=== PATIENT | male | born 1945 | race Caucasian/White ===

== ENCOUNTER → 2016-09-04 | Outpatient (CLI) | payer MEDICARE, MEDICAID ==
[~2016-09-04] MED LIST: ATOR40TA78 PO; BIMA2.5D OP; DOXA2TAB9 PO; GABA300C10 PO; KETO120S TP; LISI5TAB7 PO; OXYC1TAB8 PO; RIVA20TA PO; SPIR25TA3 PO; VITAMIN D PO
== END | disposition home or self-care (01) ==
LOC: CVU 12:36
PROVIDERS: ATTEND Surgery
DX: I65.21 Occlusion and stenosis of right carotid artery (principal); I73.9 Peripheral vascular disease, unspecified; I70.209 Unspecified atherosclerosis of native arteries of extremities, unspecified extremity
CPT/HCPCS: 93880; 93922; 93925

== ENCOUNTER 2016-11-28 11:52 | Inpatient (IN) | payer MEDICARE, MEDICAID ==
[~2016-11-28] VITALS: Ht 177.8 cm; Wt 90.3 kg
[~2016-11-28 11:52] MED LIST changes: +BIMA2.5D EACHEYE; -BIMA2.5D OP; +CEPH-376 PO; +CHOL200024 PO; +CILO100T PO; +DORZ10DR7 EACHEYE; +LISI-167 PO; +SULF-187 PO
[2016-11-28] MEDS ORDERED: LACTATED RINGERS 1,000 ML IV SCH (12:16)
[2016-11-28] MEDS ORDERED: FENTANYL PF 250 MCG/5ML ONE (14:07)
[2016-11-28] MEDS ORDERED: MIDAZOLAM 1 MG/ML, 2ML ONE (14:07)
[2016-11-28] MEDS ORDERED: HEPARIN 1,000 UNITS/ML, 10ML ONE (15:24)
[2016-11-28] MEDS ORDERED: PROTAMINE SULFATE 10 MG/ML, 5ML ONE (15:24)
[2016-11-28] MEDS ORDERED: BUPIVACAINE/PF 0.5% ONE (15:24)
[2016-11-28] MEDS ORDERED: BACITRACIN 50,000 UNIT ONE (15:25)
[2016-11-28] MEDS ORDERED: THROMBIN 20,000 UNIT VIAL TP ONE ×2 (15:25→18:28)
[2016-11-28] MEDS ORDERED: ROCURONIUM 10 MG/ML ONE (16:04)
[2016-11-28] MEDS ORDERED: PROPOFOL 10 MG/ML, 20ML ONE (16:04)
[2016-11-28] MEDS ORDERED: NEOSTIGMINE 1 MG/ML, 10ML ONE (16:04)
[2016-11-28] MEDS ORDERED: CEFAZOLIN 1,000 MG ONE (16:04)
[2016-11-28] MEDS ORDERED: DEXAMETHASONE 4 MG/ML, 1ML ONE (16:04)
[2016-11-28] MEDS ORDERED: MORPHINE SULFATE 4 MG/ML, 1ML ONE (18:49)
[2016-11-28] MEDS ORDERED: hydrALAzine 20 MG/ML, 1ML IV PRN ×2 (19:00→23:00)
[2016-11-28] MEDS ORDERED: ALBUTEROL/IPRATROPIUM 2.5MG/0.5MG, 3 ML NPPB PRN (19:00)
[2016-11-28] MEDS ORDERED: ACETAMINOPHEN 325 MG TABLET PO PRN ×2 (19:00→22:30)
[2016-11-28] MEDS ORDERED: PROMETHAZINE 25 MG/ML, 1ML IV PRN (19:00)
[2016-11-28] MEDS ORDERED: OXYcodone 5 MG/5 ML ORAL.SOL UDC PO PRN (19:00)
[2016-11-28] MEDS ORDERED: ONDANSETRON 2MG/ML, 2ML IVPush PRN (19:00)
[2016-11-28] MEDS: LABETALOL 5MG/ML, 20ML IV PRN ×2 (19:08→19:35)
[2016-11-28] MEDS ORDERED: HYDROmorphone 1 MG/ML, 1ML ONE ×2 (19:16→19:51)
[2016-11-28] MEDS ORDERED: hydrALAzine 20 MG/ML, 1ML ONE (19:16)
[2016-11-28] MEDS ORDERED: FENTANYL PF 100 MCG/2ML ONE (19:16)
[2016-11-28] MEDS: FENTANYL PF 100 MCG/2ML IV PRN ×2 (19:17→19:32)
[2016-11-28] MEDS: HYDROmorphone 1 MG/ML, 1ML IV PRN ×4 (19:22→20:05)
[2016-11-28] MEDS ORDERED: ACETAMINOPHEN 650 MG/20.3 ML UDC ONE (19:51)
[2016-11-28] MEDS ORDERED: OXYcodone 5 MG/5 ML ORAL.SOL UDC ONE (19:52)
[2016-11-28] MEDS ORDERED: ASPIRIN 325 MG TABLET PO ONE (20:00)
[2016-11-28] MEDS ORDERED: CEFAZOLIN PMX 2GM/100ML 100 ML IVPB SCH (22:30)
[2016-11-28] MEDS ORDERED: ONDANSETRON 2MG/ML, 2ML IV PRN (22:30)
[2016-11-28] MEDS ORDERED: morphine SULFATE 10 MG/ML, 1ML IV PRN (22:30)
[2016-11-28] MEDS: CEFAZOLIN PMX 2GM/50ML 50 ML IVPB SCH (23:56)
[2016-11-28] MEDS: ATORVASTATIN 40 MG TABLET PO SCH (23:56)
[2016-11-29 00:23] VITALS: BP 111/62
[2016-11-29] MEDS: LACTATED RINGERS 1,000 ML IV SCH ×2 (02:58→15:06)
[2016-11-29 03:11] VITALS: BP 144/76
[2016-11-29] MEDS: ASPIRIN 325 MG TABLET EC PO SCH (05:11)
[2016-11-29 05:28] LABS: BLOOD UREA NITROGEN 31 mg/dL (7-18)
[2016-11-29 07:32] VITALS: BP 108/66
[2016-11-29] MEDS: CEFAZOLIN PMX 2GM/50ML 50 ML IVPB SCH ×2 (09:00→17:47)
[2016-11-29] MEDS: SPIRONOLACTONE 25 MG TABLET PO SCH (09:06)
[2016-11-29] MEDS: GABAPENTIN 300 MG CAPSULE PO SCH ×3 (09:09→22:48)
[2016-11-29] MEDS: LISINOPRIL 10 MG TABLET PO SCH (09:10)
[2016-11-29] MEDS: CLOPIDOGREL 75 MG TABLET PO SCH (09:11)
[2016-11-29] MEDS: CILOSTAZOL 100 MG TABLET PO SCH ×2 (09:12→22:49)
[2016-11-29] MEDS: ENOXAPARIN 40 MG/0.4 ML SQ SCH (09:15)
[2016-11-29] MEDS: LUMIGAN HOMEOPHTH SCH ×2 (09:18→21:00)
[2016-11-29] MEDS: SODIUM CHLORIDE FLUSH 10ML SYR IVF SCH ×2 (09:19→22:49)
[2016-11-29 12:51] VITALS: BP 94/56
[2016-11-29 18:40] VITALS: BP 97/55
[2016-11-29] MEDS: ATORVASTATIN 40 MG TABLET PO SCH (22:49)
[2016-11-30] MEDS: CEFAZOLIN PMX 2GM/50ML 50 ML IVPB SCH ×3 (00:32→17:41)
[2016-11-30 02:27] VITALS: BP 96/52
[2016-11-30] MEDS: LACTATED RINGERS 1,000 ML IV SCH ×2 (03:36→13:18)
[2016-11-30] MEDS: ASPIRIN 325 MG TABLET EC PO SCH (06:58)
[2016-11-30 08:16] VITALS: BP 142/56
[2016-11-30] MEDS: GABAPENTIN 300 MG CAPSULE PO SCH ×3 (08:54→20:55)
[2016-11-30] MEDS: CILOSTAZOL 100 MG TABLET PO SCH (08:54)
[2016-11-30] MEDS: ENOXAPARIN 40 MG/0.4 ML SQ SCH (08:54)
[2016-11-30] MEDS: LISINOPRIL 10 MG TABLET PO SCH (08:54)
[2016-11-30] MEDS: SPIRONOLACTONE 25 MG TABLET PO SCH (08:54)
[2016-11-30] MEDS: CLOPIDOGREL 75 MG TABLET PO SCH (08:55)
[2016-11-30] MEDS: LUMIGAN HOMEOPHTH SCH ×2 (08:55→20:55)
[2016-11-30] MEDS: SODIUM CHLORIDE FLUSH 10ML SYR IVF SCH ×2 (08:55→20:56)
[2016-11-30 14:12] VITALS: BP 84/40
[2016-11-30 18:48] VITALS: BP 111/56
[2016-11-30] MEDS: ATORVASTATIN 40 MG TABLET PO SCH (20:55)
[2016-12-01] MEDS: LACTATED RINGERS 1,000 ML IV SCH ×2 (01:50→12:36)
[2016-12-01] MEDS: CEFAZOLIN PMX 2GM/50ML 50 ML IVPB SCH ×2 (01:51→09:12)
[2016-12-01 03:19] VITALS: BP 101/58
[2016-12-01] MEDS: ASPIRIN 325 MG TABLET EC PO SCH (06:20)
[2016-12-01 06:56] VITALS: BP 142/73
[2016-12-01] MEDS: LUMIGAN HOMEOPHTH SCH (07:56)
[2016-12-01] MEDS: SPIRONOLACTONE 25 MG TABLET PO SCH (08:00)
[2016-12-01] MEDS: ENOXAPARIN 40 MG/0.4 ML SQ SCH (08:00)
[2016-12-01] MEDS: GABAPENTIN 300 MG CAPSULE PO SCH (08:00)
[2016-12-01] MEDS: LISINOPRIL 10 MG TABLET PO SCH (08:00)
[2016-12-01] MEDS: CLOPIDOGREL 75 MG TABLET PO SCH (08:00)
[2016-12-01] MEDS: SODIUM CHLORIDE FLUSH 10ML SYR IVF SCH (08:00)
[2016-12-01 13:28] VITALS: BP 105/62
== END 2016-12-01 16:17 | disposition home or self-care (01) | DRG 253 ==
LOC: ORIP 11:52 → 4NOR 20:45
PROVIDERS: ADMIT Surgery; ATTEND Surgery
PROC: 041K0JL Bypass Right Femoral Artery to Popliteal Artery with Synthetic Substitute, Open Approach (ICD-10-PCS; principal; 2016-11-28 15:00)
DX: I70.235 Atherosclerosis of native arteries of right leg with ulceration of other part of foot (principal); E44.1 Mild protein-calorie malnutrition; I10 Essential (primary) hypertension; L97.519 Non-pressure chronic ulcer of other part of right foot with unspecified severity; R10.9 Unspecified abdominal pain; J44.9 Chronic obstructive pulmonary disease, unspecified; E78.5 Hyperlipidemia, unspecified; G89.29 Other chronic pain; M54.5 Low back pain; M19.90 Unspecified osteoarthritis, unspecified site; N40.0 Benign prostatic hyperplasia without lower urinary tract symptoms; I25.10 Atherosclerotic heart disease of native coronary artery without angina pectoris; Z87.891 Personal history of nicotine dependence; Z95.820 Peripheral vascular angioplasty status with implants and grafts; Z86.711 Personal history of pulmonary embolism; Z79.01 Long term (current) use of anticoagulants
CPT/HCPCS: 36415; 80048; 82040; 85025; 86850; 86900; 93005; C1729; J0690; J1100; J1170; J1644; J1650; J2250; J2704; J2710; J2720; J3010; J3490; C1768; J7120

== ENCOUNTER 2017-07-31 14:01 | Emergency (ER) | payer MEDICARE, MEDICAID ==
[~2017-07-31] VITALS: Ht 177.8 cm; Wt 86.5 kg
[~2017-07-31 14:01] MED LIST changes: +SULF-16 PO; -SULF-187 PO
[2017-07-31 15:14] LABS: BASOPHILS # (AUTO) 0.03 x10^3/uL (0-0.1); BASOPHILS % (AUTO) 0 % (0-1); EOSINOPHILS # (AUTO) 0.11 x10^3/uL (0-0.4); EOSINOPHILS % (AUTO) 1 % (1-7); LYMPHOCYTES # (AUTO) 1.47 x10^3/uL (1-3.4); LYMPHOCYTES % (AUTO) 17 % (22-44); MD NO; MEAN CORPUSCULAR HEMOGLOBIN 31.4 pg (27.5-34.5); MEAN CORPUSCULAR HGB CONC 33.4 g/dL (33.2-36.2); MEAN CORPUSCULAR VOLUME 94.2 fL (81-97); MEAN PLATELET VOLUME 8.1 fL (7.4-10.4); MONOCYTES # (AUTO) 0.76 x10^3/uL (0.2-0.8); MONOCYTES % (AUTO) 9 % (2-9); NEUTROPHILS % (AUTO) 72 % (42-75); PLATELET COUNT 221 x10^3/uL (130-400); RED BLOOD COUNT 4.46 x10^6/uL (4.38-5.82)
[2017-07-31 15:26] LABS: ALBUMIN 3.8 g/dL (3.4-5.0); ANION GAP 6 mmol/L (5-15); CALCIUM 9.2 mg/dL (8.5-10.1); CHLORIDE 103 mmol/L (98-107); CREATININE 0.79 mg/dL (0.7-1.3)
[2017-07-31] MEDS ORDERED: FLU180SY9 INJ (17:31)
[2017-07-31] MEDS ORDERED: TRAM50TA2 PO (17:31)
[2017-07-31] MEDS ORDERED: KETOROLAC 30 MG/1 ML ONE (19:52)
[2017-07-31 19:56] VITALS: BP 111/67
[2017-07-31] MEDS ORDERED: KETOROLAC 30 MG/1 ML IM ONE (20:00)
== END 2017-07-31 21:03 | disposition home or self-care (01) ==
LOC: ED 17:08
DX: M79.604 Pain in right leg (principal); R60.0 Localized edema; R20.0 Anesthesia of skin; R20.2 Paresthesia of skin; J44.9 Chronic obstructive pulmonary disease, unspecified; I10 Essential (primary) hypertension; E78.00 Pure hypercholesterolemia, unspecified
CPT/HCPCS: 36415; 80048; 82040; 85025; 93971; 96372; 99285; J1885

== ENCOUNTER 2017-08-11 15:51 | Inpatient (IN) | payer MEDICARE, MEDICAID ==
[~2017-08-11] VITALS: Ht 177.8 cm; Wt 83.4 kg
[~2017-08-11 15:51] MED LIST changes: +FLU180SY9 INJ; +TRAM50TA2 PO
[2017-08-11] MEDS ORDERED: BIMA2.5D EACHEYE (18:29)
[2017-08-11] MEDS ORDERED: SODIUM CHLORIDE FLUSH 10ML SYR IVF ONE (18:30)
[2017-08-11] MEDS ORDERED: morphine SULFATE 10 MG/ML, 1ML IVPush ONE (19:00)
[2017-08-11 19:31] LABS: BASOPHILS # (AUTO) 0.04 x10^3/uL (0-0.1); BASOPHILS % (AUTO) 0 % (0-1); EOSINOPHILS # (AUTO) 0.06 x10^3/uL (0-0.4); EOSINOPHILS % (AUTO) 1 % (1-7); LYMPHOCYTES # (AUTO) 1.99 x10^3/uL (1-3.4); LYMPHOCYTES % (AUTO) 19 % (22-44); MD NO; MEAN CORPUSCULAR HEMOGLOBIN 31.4 pg (27.5-34.5); MEAN CORPUSCULAR HGB CONC 33.4 g/dL (33.2-36.2); MEAN CORPUSCULAR VOLUME 93.9 fL (81-97); MEAN PLATELET VOLUME 8.7 fL (7.4-10.4); MONOCYTES # (AUTO) 0.97 x10^3/uL (0.2-0.8); MONOCYTES % (AUTO) 9 % (2-9); NEUTROPHILS # (AUTO) 7.26 x10^3/uL (1.8-6.8); NEUTROPHILS % (AUTO) 70 % (42-75); PLATELET COUNT 235 x10^3/uL (130-400); RED BLOOD COUNT 4.93 x10^6/uL (4.38-5.82); RED CELL DISTRIBUTION WIDTH 14.5 % (9.4-14.8)
[2017-08-11 19:36] LABS: INTERNATIONAL NORMALIZED RATIO 1.15 (0.93-1.1); PROTHROMBIN TIME 11.9 Seconds (9.6-11.5)
[2017-08-11 19:38] LABS: ANION GAP 10 mmol/L (5-15); CALCIUM 8.8 mg/dL (8.5-10.1); CHLORIDE 102 mmol/L (98-107); CREATININE 0.86 mg/dL (0.7-1.3)
[2017-08-11 19:39] LABS: ALANINE AMINOTRANSFERASE 22 U/L (12-78); ALBUMIN 4.2 g/dL (3.4-5.0)
[2017-08-11 19:41] LABS: ALKALINE PHOSPHATASE 79 U/L (45-117); BILIRUBIN,TOTAL 1.1 mg/dL (0.2-1.0); TOTAL PROTEIN 8.2 g/dL (6.4-8.2)
[2017-08-11] MEDS ORDERED: POLYETHYLENE GLYCOL 17 GM PACKET PO PRN (20:00)
[2017-08-11] MEDS ORDERED: ONDANSETRON 2MG/ML, 2ML IVPush PRN (20:00)
[2017-08-11] MEDS ORDERED: BISACODYL 10 MG SUPP PR PRN (20:00)
[2017-08-11] MEDS ORDERED: OXYcodone IR 5MG TABLET ONE (20:00)
[2017-08-11 20:30] VITALS: BP 117/67
[2017-08-11] MEDS: CILOSTAZOL 100 MG TABLET PO SCH (21:00)
[2017-08-11] MEDS: GABAPENTIN 300 MG CAPSULE PO SCH (21:36)
[2017-08-11] MEDS: SODIUM CHLORIDE FLUSH 10ML SYR IVF SCH (21:36)
[2017-08-11] MEDS: ATORVASTATIN 40 MG TABLET PO SCH (21:36)
[2017-08-12 01:15] VITALS: BP 127/74
[2017-08-12] MEDS: OXYcodone IR 5MG TABLET PO PRN (05:17)
[2017-08-12] MEDS: ACETAMINOPHEN 325 MG TABLET PO PRN (05:17)
[2017-08-12 05:32] LABS: BASOPHILS # (AUTO) 0.04 x10^3/uL (0-0.1); BASOPHILS % (AUTO) 1 % (0-1); EOSINOPHILS # (AUTO) 0.09 x10^3/uL (0-0.4); EOSINOPHILS % (AUTO) 1 % (1-7); LYMPHOCYTES # (AUTO) 1.63 x10^3/uL (1-3.4); LYMPHOCYTES % (AUTO) 21 % (22-44); MD NO; MEAN CORPUSCULAR HEMOGLOBIN 31.3 pg (27.5-34.5); MEAN CORPUSCULAR HGB CONC 33.4 g/dL (33.2-36.2); MEAN CORPUSCULAR VOLUME 93.6 fL (81-97); MONOCYTES % (AUTO) 10 % (2-9); NEUTROPHILS # (AUTO) 5.26 x10^3/uL (1.8-6.8); NEUTROPHILS % (AUTO) 67 % (42-75); PLATELET COUNT 201 x10^3/uL (130-400); RED BLOOD COUNT 4.56 x10^6/uL (4.38-5.82); RED CELL DISTRIBUTION WIDTH 14.3 % (9.4-14.8)
[2017-08-12 05:40] LABS: ALBUMIN 3.6 g/dL (3.4-5.0); ANION GAP 8 mmol/L (5-15); CALCIUM 8.1 mg/dL (8.5-10.1); CHLORIDE 103 mmol/L (98-107)
[2017-08-12 05:44] LABS: BILIRUBIN,TOTAL 1.1 mg/dL (0.2-1.0); CREATININE 0.95 mg/dL (0.7-1.3)
[2017-08-12 05:45] LABS: ALANINE AMINOTRANSFERASE 19 U/L (12-78); ALKALINE PHOSPHATASE 72 U/L (45-117); TOTAL PROTEIN 7.2 g/dL (6.4-8.2)
[2017-08-12 06:44] VITALS: BP 110/64
[2017-08-12] MEDS: CHOLECALCIFEROL 400 UNITS TABLET PO SCH (09:00)
[2017-08-12] MEDS: SODIUM CHLORIDE FLUSH 10ML SYR IVF SCH ×2 (09:00→21:53)
[2017-08-12] MEDS: (Bimatoprost (Lumigan) 1 DROP) EACHEYE SCH (09:00)
[2017-08-12] MEDS: GABAPENTIN 300 MG CAPSULE PO SCH ×3 (10:30→21:53)
[2017-08-12] MEDS: CILOSTAZOL 100 MG TABLET PO SCH ×2 (10:30→21:53)
[2017-08-12] MEDS: SPIRONOLACTONE 25 MG TABLET PO SCH (10:30)
[2017-08-12] MEDS: SENNA/DOCUSATE TABLET PO SCH (10:30)
[2017-08-12] MEDS: LISINOPRIL 10 MG TABLET PO SCH (10:30)
[2017-08-12 13:08] VITALS: BP 140/67
[2017-08-12] MEDS ORDERED: FENTANYL PF 100 MCG/2ML ONE ×3 (17:33→19:36)
[2017-08-12] MEDS ORDERED: PROPOFOL 10 MG/ML, 20ML ONE (18:14)
[2017-08-12] MEDS ORDERED: ONDANSETRON 2MG/ML, 2ML ONE (18:14)
[2017-08-12] MEDS ORDERED: CEFAZOLIN 1,000 MG ONE (18:14)
[2017-08-12] MEDS ORDERED: morphine SULFATE 10 MG/ML, 1ML ONE (19:36)
[2017-08-12] MEDS ORDERED: OXYcodone 5 MG/5 ML ORAL.SOL UDC ONE (19:36)
[2017-08-12] MEDS: FENTANYL PF 100 MCG/2ML IV PRN ×2 (19:38→19:54)
[2017-08-12] MEDS: morphine SULFATE 10 MG/ML, 1ML IV PRN ×3 (19:44→20:13)
[2017-08-12] MEDS ORDERED: OXYcodone 5 MG/5 ML ORAL.SOL UDC PO PRN (20:30)
[2017-08-12] MEDS: HYDROmorphone 1 MG/ML, 1ML IV PRN ×3 (20:30→20:45)
[2017-08-12] MEDS ORDERED: HYDROmorphone 1 MG/ML, 1ML ONE (20:30)
[2017-08-12] MEDS ORDERED: ONDANSETRON 2MG/ML, 2ML IVPush PRN (20:30)
[2017-08-12] MEDS ORDERED: MEPERIDINE/PF 25MG/0.5ML IVPush PRN (20:30)
[2017-08-12 21:00] VITALS: BP 132/59
[2017-08-12] MEDS: ATORVASTATIN 40 MG TABLET PO SCH (21:53)
[2017-08-12] MEDS ORDERED: D5%-LR+KCL 20MEQ 1,000 ML IV SCH (22:30)
[2017-08-12] MEDS: D5%-LR+KCL 20MEQ 1,000 ML IV SCH (22:53)
[2017-08-13 00:15] VITALS: BP 106/54
[2017-08-13] MEDS: OXYcodone IR 5MG TABLET PO PRN ×5 (00:20→18:06)
[2017-08-13] MEDS: ACETAMINOPHEN 325 MG TABLET PO PRN ×5 (00:20→18:06)
[2017-08-13] MEDS: CEFAZOLIN PMX 2GM/50ML 50 ML IVPB SCH ×3 (02:20→18:02)
[2017-08-13 03:38] VITALS: BP 91/53
[2017-08-13 05:39] LABS: BASOPHILS # (AUTO) 0.04 x10^3/uL (0-0.1); BASOPHILS % (AUTO) 0 % (0-1); EOSINOPHILS # (AUTO) 0.02 x10^3/uL (0-0.4); EOSINOPHILS % (AUTO) 0 % (1-7); LYMPHOCYTES # (AUTO) 1.41 x10^3/uL (1-3.4); LYMPHOCYTES % (AUTO) 10 % (22-44); MD NO; MEAN CORPUSCULAR HEMOGLOBIN 31.5 pg (27.5-34.5); MEAN CORPUSCULAR HGB CONC 33.3 g/dL (33.2-36.2); MEAN CORPUSCULAR VOLUME 94.6 fL (81-97); MEAN PLATELET VOLUME 8.6 fL (7.4-10.4); MONOCYTES # (AUTO) 0.76 x10^3/uL (0.2-0.8); MONOCYTES % (AUTO) 6 % (2-9); NEUTROPHILS # (AUTO) 11.47 x10^3/uL (1.8-6.8); NEUTROPHILS % (AUTO) 84 % (42-75); PLATELET COUNT 207 x10^3/uL (130-400); RED BLOOD COUNT 4.35 x10^6/uL (4.38-5.82)
[2017-08-13 05:54] LABS: ANION GAP 9 mmol/L (5-15); CALCIUM 8.5 mg/dL (8.5-10.1); CHLORIDE 102 mmol/L (98-107)
[2017-08-13 05:57] LABS: CREATININE 1.54 mg/dL (0.7-1.3)
[2017-08-13 08:24] VITALS: BP 99/51
[2017-08-13] MEDS: D5%-LR+KCL 20MEQ 1,000 ML IV SCH (08:30)
[2017-08-13] MEDS: SODIUM CHLORIDE FLUSH 10ML SYR IVF SCH ×2 (09:00→20:12)
[2017-08-13] MEDS: LISINOPRIL 10 MG TABLET PO SCH (09:00)
[2017-08-13] MEDS: SPIRONOLACTONE 25 MG TABLET PO SCH (09:00)
[2017-08-13] MEDS: (Bimatoprost (Lumigan) 1 DROP) EACHEYE SCH (09:00)
[2017-08-13] MEDS: ENOXAPARIN 40 MG/0.4 ML SQ SCH (09:23)
[2017-08-13] MEDS: GABAPENTIN 300 MG CAPSULE PO SCH ×3 (09:25→20:12)
[2017-08-13] MEDS: CILOSTAZOL 100 MG TABLET PO SCH ×2 (09:25→20:12)
[2017-08-13] MEDS: SENNA/DOCUSATE TABLET PO SCH (09:26)
[2017-08-13] MEDS: CHOLECALCIFEROL 400 UNITS TABLET PO SCH (09:26)
[2017-08-13] MEDS: MORPHINE SULFATE 4 MG/ML, 1ML IVPush PRN ×2 (11:26→23:56)
[2017-08-13] MEDS ORDERED: PHARMACY MAY ADJ FOR RENAL FX MC PRN (12:00)
[2017-08-13 13:09] VITALS: BP 148/56
[2017-08-13] MEDS: SODIUM CHLORIDE 0.9% 1,000 ML IV SCH ×2 (13:09→23:45)
[2017-08-13 19:32] VITALS: BP 106/51
[2017-08-13] MEDS: ATORVASTATIN 40 MG TABLET PO SCH (20:12)
[2017-08-13 23:21] LABS: CULTURE INDICATED? YES; MICROSCOPIC INDICATED
[2017-08-14] MEDS: ACETAMINOPHEN 325 MG TABLET PO PRN ×4 (00:13→19:57)
[2017-08-14] MEDS: OXYcodone IR 5MG TABLET PO PRN ×2 (00:13→05:26)
[2017-08-14] MEDS: MORPHINE SULFATE 4 MG/ML, 1ML IVPush PRN (01:19)
[2017-08-14 01:55] VITALS: BP 106/56
[2017-08-14 05:54] LABS: CHLORIDE 101 mmol/L (98-107)
[2017-08-14 06:02] LABS: ANION GAP 9 mmol/L (5-15); CALCIUM 8.3 mg/dL (8.5-10.1); CREATININE 1.13 mg/dL (0.7-1.3)
[2017-08-14 06:05] LABS: BASOPHILS # (AUTO) 0.02 x10^3/uL (0-0.1); BASOPHILS % (AUTO) 0 % (0-1); EOSINOPHILS # (AUTO) 0.02 x10^3/uL (0-0.4); EOSINOPHILS % (AUTO) 0 % (1-7); LYMPHOCYTES # (AUTO) 1.21 x10^3/uL (1-3.4); LYMPHOCYTES % (AUTO) 11 % (22-44); MD NO; MEAN CORPUSCULAR HEMOGLOBIN 31.4 pg (27.5-34.5); MEAN CORPUSCULAR HGB CONC 33.4 g/dL (33.2-36.2); MEAN CORPUSCULAR VOLUME 93.9 fL (81-97); MEAN PLATELET VOLUME 8.6 fL (7.4-10.4); MONOCYTES # (AUTO) 1.18 x10^3/uL (0.2-0.8); MONOCYTES % (AUTO) 10 % (2-9); NEUTROPHILS # (AUTO) 8.96 x10^3/uL (1.8-6.8); NEUTROPHILS % (AUTO) 79 % (42-75); PLATELET COUNT 193 x10^3/uL (130-400); RED BLOOD COUNT 3.79 x10^6/uL (4.38-5.82)
[2017-08-14 08:21] VITALS: BP 119/51
[2017-08-14] MEDS: SODIUM CHLORIDE FLUSH 10ML SYR IVF SCH ×3 (09:00→19:57)
[2017-08-14] MEDS: (Bimatoprost (Lumigan) 1 DROP) EACHEYE SCH (09:00)
[2017-08-14] MEDS: ENOXAPARIN 40 MG/0.4 ML SQ SCH (10:11)
[2017-08-14] MEDS: SENNA/DOCUSATE TABLET PO SCH (10:11)
[2017-08-14] MEDS: CILOSTAZOL 100 MG TABLET PO SCH ×2 (10:11→19:57)
[2017-08-14] MEDS: GABAPENTIN 300 MG CAPSULE PO SCH ×3 (10:11→19:57)
[2017-08-14] MEDS: CHOLECALCIFEROL 400 UNITS TABLET PO SCH (10:14)
[2017-08-14] MEDS: CEFTRIAXONE PMX 1GM/50ML 50 ML IV SCH (11:25)
[2017-08-14] MEDS: SODIUM CHLORIDE 0.9% 1,000 ML IV SCH ×2 (11:26→19:57)
[2017-08-14] MEDS ORDERED: DEXTROSE 4 GM TAB.CHEW PO PRN (11:30)
[2017-08-14] MEDS ORDERED: GLUCAGON 1 MG IM PRN (11:30)
[2017-08-14] MEDS ORDERED: DEXTROSE 50%, 50ML SYRINGE IVPush PRN (11:30)
[2017-08-14] MEDS: INSULIN LISPRO 100 UNITS/ML, PEN SQ-INSULIN SCH ×3 (11:30→21:09)
[2017-08-14] MEDS ORDERED: OXYcodone IR 5MG TABLET PO PRN (12:00)
[2017-08-14 12:20] LABS: HEMOGLOBIN A1C 5.5 % (4.2-6.3)
[2017-08-14] MEDS: FOLIC ACID 1 MG TABLET PO SCH (13:54)
[2017-08-14] MEDS: MULTIVIT.W/IRON, MINERALS ORAL SOL PO SCH (13:54)
[2017-08-14] MEDS: TAMSULOSIN 0.4 MG CAP.ER.24H PO SCH (13:54)
[2017-08-14] MEDS: THIAMINE 100MG TABLET PO SCH (13:55)
[2017-08-14 14:51] VITALS: BP 118/67
[2017-08-14 18:42] VITALS: BP 123/64
[2017-08-14] MEDS: ATORVASTATIN 40 MG TABLET PO SCH (19:57)
[2017-08-15 00:58] VITALS: BP 101/55
[2017-08-15] MEDS: ACETAMINOPHEN 325 MG TABLET PO PRN (01:58)
[2017-08-15] MEDS: SODIUM CHLORIDE 0.9% 1,000 ML IV SCH ×2 (06:00→16:00)
[2017-08-15 07:20] VITALS: BP 114/57
[2017-08-15 08:27] LABS: MEAN CORPUSCULAR HEMOGLOBIN 31.3 pg (27.5-34.5); MEAN CORPUSCULAR HGB CONC 33.4 g/dL (33.2-36.2); MEAN CORPUSCULAR VOLUME 93.7 fL (81-97); MEAN PLATELET VOLUME 8.4 fL (7.4-10.4); PLATELET COUNT 194 x10^3/uL (130-400); RED BLOOD COUNT 3.75 x10^6/uL (4.38-5.82); RED CELL DISTRIBUTION WIDTH 13.9 % (9.4-14.8)
[2017-08-15 08:31] LABS: ALANINE AMINOTRANSFERASE 32 U/L (12-78); ALBUMIN 3.3 g/dL (3.4-5.0); ANION GAP 9 mmol/L (5-15); CALCIUM 8.6 mg/dL (8.5-10.1); CHLORIDE 101 mmol/L (98-107)
[2017-08-15 08:34] LABS: ALKALINE PHOSPHATASE 59 U/L (45-117); BILIRUBIN,TOTAL 1.3 mg/dL (0.2-1.0); TOTAL PROTEIN 7.4 g/dL (6.4-8.2)
[2017-08-15] MEDS: SODIUM CHLORIDE FLUSH 10ML SYR IVF SCH ×4 (09:00→21:22)
[2017-08-15] MEDS: (Bimatoprost (Lumigan) 1 DROP) EACHEYE SCH (09:00)
[2017-08-15 09:11] LABS: BASOPHILS % (AUTO) 0 % (0-1); EOSINOPHILS % (AUTO) 0 % (1-7); LYMPHOCYTES # (AUTO) 0.79 x10^3/uL (1-3.4); LYMPHOCYTES % (AUTO) 6 % (22-44); MD SCAN; MONOCYTES # (AUTO) 1.59 x10^3/uL (0.2-0.8); MONOCYTES % (AUTO) 12 % (2-9); NEUTROPHILS # (AUTO) 10.68 x10^3/uL (1.8-6.8); NEUTROPHILS % (AUTO) 82 % (42-75)
[2017-08-15] MEDS: INSULIN LISPRO 100 UNITS/ML, PEN SQ-INSULIN SCH ×4 (09:17→21:00)
[2017-08-15] MEDS: MULTIVIT.W/IRON, MINERALS ORAL SOL PO SCH (09:18)
[2017-08-15] MEDS: CHOLECALCIFEROL 400 UNITS TABLET PO SCH (09:24)
[2017-08-15] MEDS: FOLIC ACID 1 MG TABLET PO SCH (09:24)
[2017-08-15] MEDS: CILOSTAZOL 100 MG TABLET PO SCH ×2 (09:24→21:22)
[2017-08-15] MEDS: TAMSULOSIN 0.4 MG CAP.ER.24H PO SCH (09:24)
[2017-08-15] MEDS: THIAMINE 100MG TABLET PO SCH (09:24)
[2017-08-15] MEDS: GABAPENTIN 300 MG CAPSULE PO SCH ×3 (09:24→21:22)
[2017-08-15] MEDS: SENNA/DOCUSATE TABLET PO SCH (09:24)
[2017-08-15] MEDS: ENOXAPARIN 40 MG/0.4 ML SQ SCH (09:24)
[2017-08-15] MEDS: CEFTRIAXONE PMX 1GM/50ML 50 ML IV SCH (10:57)
[2017-08-15 14:38] VITALS: BP 109/65
[2017-08-15 19:44] VITALS: BP 103/66
[2017-08-15] MEDS: ATORVASTATIN 40 MG TABLET PO SCH (21:22)
[2017-08-16] MEDS: SODIUM CHLORIDE 0.9% 1,000 ML IV SCH (02:01)
[2017-08-16 02:37] VITALS: BP 112/64
[2017-08-16] MEDS: INSULIN LISPRO 100 UNITS/ML, PEN SQ-INSULIN SCH ×4 (07:19→21:00)
[2017-08-16 07:54] VITALS: BP 105/62
[2017-08-16] MEDS: SODIUM CHLORIDE FLUSH 10ML SYR IVF SCH ×4 (09:17→21:05)
[2017-08-16] MEDS: (Bimatoprost (Lumigan) 1 DROP) EACHEYE SCH (09:31)
[2017-08-16] MEDS: CHOLECALCIFEROL 400 UNITS TABLET PO SCH (09:32)
[2017-08-16] MEDS: ENOXAPARIN 40 MG/0.4 ML SQ SCH (09:32)
[2017-08-16] MEDS: FOLIC ACID 1 MG TABLET PO SCH (09:32)
[2017-08-16] MEDS: MULTIVIT.W/IRON, MINERALS ORAL SOL PO SCH (09:32)
[2017-08-16] MEDS: THIAMINE 100MG TABLET PO SCH (09:32)
[2017-08-16] MEDS: GABAPENTIN 300 MG CAPSULE PO SCH ×3 (09:32→21:05)
[2017-08-16] MEDS: TAMSULOSIN 0.4 MG CAP.ER.24H PO SCH (09:33)
[2017-08-16] MEDS: CILOSTAZOL 100 MG TABLET PO SCH ×2 (09:33→21:05)
[2017-08-16] MEDS: SENNA/DOCUSATE TABLET PO SCH (09:33)
[2017-08-16] MEDS: CEFTRIAXONE PMX 1GM/50ML 50 ML IV SCH (11:28)
[2017-08-16 13:40] VITALS: BP 124/69
[2017-08-16 15:05] LABS: BASOPHILS % (AUTO) 0 % (0-1); EOSINOPHILS # (AUTO) 0.01 x10^3/uL (0-0.4); EOSINOPHILS % (AUTO) 0 % (1-7); LYMPHOCYTES % (AUTO) 8 % (22-44); MD NO; MEAN CORPUSCULAR HEMOGLOBIN 30.9 pg (27.5-34.5); MEAN CORPUSCULAR HGB CONC 33.3 g/dL (33.2-36.2); MEAN CORPUSCULAR VOLUME 92.9 fL (81-97); MEAN PLATELET VOLUME 8.2 fL (7.4-10.4); MONOCYTES # (AUTO) 0.88 x10^3/uL (0.2-0.8); MONOCYTES % (AUTO) 9 % (2-9); NEUTROPHILS # (AUTO) 8.52 x10^3/uL (1.8-6.8); NEUTROPHILS % (AUTO) 83 % (42-75); PLATELET COUNT 218 x10^3/uL (130-400); RED BLOOD COUNT 3.48 x10^6/uL (4.38-5.82); RED CELL DISTRIBUTION WIDTH 13.9 % (9.4-14.8)
[2017-08-16 15:12] LABS: ALBUMIN 2.7 g/dL (3.4-5.0); ANION GAP 7 mmol/L (5-15); CHLORIDE 104 mmol/L (98-107); CREATININE 0.72 mg/dL (0.7-1.3)
[2017-08-16 15:25] LABS: MICROSCOPIC AUTO
[2017-08-16 15:30] LABS: CULTURE INDICATED? NO
[2017-08-16] MEDS: RIVAROXABAN 20 MG TABLET PO SCH (18:20)
[2017-08-16 20:18] VITALS: BP 130/74
[2017-08-16] MEDS: ATORVASTATIN 40 MG TABLET PO SCH (21:05)
[2017-08-17] MEDS: ACETAMINOPHEN 325 MG TABLET PO PRN ×3 (00:07→23:29)
[2017-08-17 00:26] VITALS: BP 106/65
[2017-08-17] MEDS: INSULIN LISPRO 100 UNITS/ML, PEN SQ-INSULIN SCH ×4 (06:11→20:02)
[2017-08-17 07:29] VITALS: BP 139/78
[2017-08-17 09:03] LABS: ALBUMIN 2.8 g/dL (3.4-5.0); ANION GAP 8 mmol/L (5-15); CALCIUM 8.4 mg/dL (8.5-10.1); CHLORIDE 104 mmol/L (98-107); CREATININE 0.67 mg/dL (0.7-1.3)
[2017-08-17] MEDS: (Bimatoprost (Lumigan) 1 DROP) EACHEYE SCH (09:21)
[2017-08-17] MEDS: SODIUM CHLORIDE FLUSH 10ML SYR IVF SCH ×4 (09:24→23:30)
[2017-08-17] MEDS: MULTIVIT.W/IRON, MINERALS ORAL SOL PO SCH (09:25)
[2017-08-17] MEDS: SENNA/DOCUSATE TABLET PO SCH (09:25)
[2017-08-17] MEDS: THIAMINE 100MG TABLET PO SCH (09:25)
[2017-08-17] MEDS: TAMSULOSIN 0.4 MG CAP.ER.24H PO SCH (09:25)
[2017-08-17] MEDS: GABAPENTIN 300 MG CAPSULE PO SCH ×3 (09:25→23:29)
[2017-08-17] MEDS: CHOLECALCIFEROL 400 UNITS TABLET PO SCH (09:25)
[2017-08-17] MEDS: CILOSTAZOL 100 MG TABLET PO SCH ×2 (09:25→23:29)
[2017-08-17] MEDS: FOLIC ACID 1 MG TABLET PO SCH (09:26)
[2017-08-17 09:59] LABS: BASOPHILS # (AUTO) 0.02 x10^3/uL (0-0.1); BASOPHILS % (AUTO) 0 % (0-1); EOSINOPHILS # (AUTO) 0.04 x10^3/uL (0-0.4); EOSINOPHILS % (AUTO) 0 % (1-7); LYMPHOCYTES # (AUTO) 0.76 x10^3/uL (1-3.4); LYMPHOCYTES % (AUTO) 9 % (22-44); MD NO; MEAN CORPUSCULAR HEMOGLOBIN 31.2 pg (27.5-34.5); MEAN CORPUSCULAR HGB CONC 33.2 g/dL (33.2-36.2); MEAN CORPUSCULAR VOLUME 94.1 fL (81-97); MEAN PLATELET VOLUME 8.1 fL (7.4-10.4); MONOCYTES # (AUTO) 0.81 x10^3/uL (0.2-0.8); MONOCYTES % (AUTO) 10 % (2-9); NEUTROPHILS # (AUTO) 6.74 x10^3/uL (1.8-6.8); NEUTROPHILS % (AUTO) 81 % (42-75); PLATELET COUNT 237 x10^3/uL (130-400); RED BLOOD COUNT 3.57 x10^6/uL (4.38-5.82); RED CELL DISTRIBUTION WIDTH 14.1 % (9.4-14.8)
[2017-08-17 13:41] VITALS: BP 117/69
[2017-08-17] MEDS: RIVAROXABAN 20 MG TABLET PO SCH (18:02)
[2017-08-17] MEDS: MORPHINE SULFATE 4 MG/ML, 1ML IVPush PRN (18:11)
[2017-08-17 19:56] VITALS: BP 129/67
[2017-08-17] MEDS: ATORVASTATIN 40 MG TABLET PO SCH (23:29)
[2017-08-18 02:41] VITALS: BP 104/58
[2017-08-18] MEDS: INSULIN LISPRO 100 UNITS/ML, PEN SQ-INSULIN SCH ×5 (06:07→20:14)
[2017-08-18] MEDS: ACETAMINOPHEN 325 MG TABLET PO PRN ×2 (07:38→20:05)
[2017-08-18] MEDS: MORPHINE SULFATE 4 MG/ML, 1ML IVPush PRN (07:38)
[2017-08-18 08:27] VITALS: BP 101/58
[2017-08-18 08:36] LABS: BASOPHILS # (AUTO) 0.03 x10^3/uL (0-0.1); BASOPHILS % (AUTO) 1 % (0-1); EOSINOPHILS # (AUTO) 0.09 x10^3/uL (0-0.4); EOSINOPHILS % (AUTO) 1 % (1-7); LYMPHOCYTES # (AUTO) 0.84 x10^3/uL (1-3.4); LYMPHOCYTES % (AUTO) 11 % (22-44); MD NO; MEAN CORPUSCULAR HEMOGLOBIN 30.9 pg (27.5-34.5); MEAN CORPUSCULAR HGB CONC 33.1 g/dL (33.2-36.2); MEAN CORPUSCULAR VOLUME 93.3 fL (81-97); MEAN PLATELET VOLUME 7.6 fL (7.4-10.4); MONOCYTES # (AUTO) 0.71 x10^3/uL (0.2-0.8); MONOCYTES % (AUTO) 10 % (2-9); NEUTROPHILS # (AUTO) 5.83 x10^3/uL (1.8-6.8); NEUTROPHILS % (AUTO) 78 % (42-75); PLATELET COUNT 283 x10^3/uL (130-400); RED BLOOD COUNT 3.57 x10^6/uL (4.38-5.82)
[2017-08-18] MEDS: SODIUM CHLORIDE FLUSH 10ML SYR IVF SCH ×4 (08:42→20:07)
[2017-08-18] MEDS: (Bimatoprost (Lumigan) 1 DROP) EACHEYE SCH (08:42)
[2017-08-18 08:47] LABS: ALBUMIN 2.5 g/dL (3.4-5.0); ANION GAP 10 mmol/L (5-15); CALCIUM 8.2 mg/dL (8.5-10.1); CHLORIDE 104 mmol/L (98-107); CREATININE 0.58 mg/dL (0.7-1.3)
[2017-08-18] MEDS: MULTIVIT.W/IRON, MINERALS ORAL SOL PO SCH (08:54)
[2017-08-18] MEDS: CHOLECALCIFEROL 400 UNITS TABLET PO SCH (08:55)
[2017-08-18] MEDS: TAMSULOSIN 0.4 MG CAP.ER.24H PO SCH (08:55)
[2017-08-18] MEDS: SENNA/DOCUSATE TABLET PO SCH (08:55)
[2017-08-18] MEDS: THIAMINE 100MG TABLET PO SCH (08:55)
[2017-08-18] MEDS: FOLIC ACID 1 MG TABLET PO SCH (08:55)
[2017-08-18] MEDS: CILOSTAZOL 100 MG TABLET PO SCH ×2 (08:55→20:05)
[2017-08-18] MEDS: GABAPENTIN 300 MG CAPSULE PO SCH ×3 (08:55→20:05)
[2017-08-18 14:16] VITALS: BP 106/68
[2017-08-18] MEDS: RIVAROXABAN 20 MG TABLET PO SCH (18:11)
[2017-08-18 20:00] VITALS: BP 122/67
[2017-08-18] MEDS: ATORVASTATIN 40 MG TABLET PO SCH (20:05)
[2017-08-19 02:50] VITALS: BP 95/57
[2017-08-19] MEDS: ACETAMINOPHEN 325 MG TABLET PO PRN ×4 (03:32→21:34)
[2017-08-19 05:16] LABS: BASOPHILS # (AUTO) 0.04 x10^3/uL (0-0.1); BASOPHILS % (AUTO) 1 % (0-1); EOSINOPHILS # (AUTO) 0.15 x10^3/uL (0-0.4); EOSINOPHILS % (AUTO) 2 % (1-7); LYMPHOCYTES # (AUTO) 1.13 x10^3/uL (1-3.4); LYMPHOCYTES % (AUTO) 15 % (22-44); MD NO; MEAN CORPUSCULAR HEMOGLOBIN 31.3 pg (27.5-34.5); MEAN CORPUSCULAR HGB CONC 33.8 g/dL (33.2-36.2); MEAN CORPUSCULAR VOLUME 92.9 fL (81-97); MEAN PLATELET VOLUME 7.9 fL (7.4-10.4); MONOCYTES # (AUTO) 0.79 x10^3/uL (0.2-0.8); MONOCYTES % (AUTO) 10 % (2-9); NEUTROPHILS # (AUTO) 5.59 x10^3/uL (1.8-6.8); NEUTROPHILS % (AUTO) 73 % (42-75); PLATELET COUNT 319 x10^3/uL (130-400); RED CELL DISTRIBUTION WIDTH 14.1 % (9.4-14.8)
[2017-08-19 05:25] LABS: ALBUMIN 2.5 g/dL (3.4-5.0); ANION GAP 8 mmol/L (5-15); CALCIUM 8.3 mg/dL (8.5-10.1); CHLORIDE 104 mmol/L (98-107)
[2017-08-19 05:26] LABS: CREATININE 0.71 mg/dL (0.7-1.3)
[2017-08-19 07:18] VITALS: BP 138/67
[2017-08-19] MEDS: SODIUM CHLORIDE FLUSH 10ML SYR IVF SCH ×4 (08:07→21:34)
[2017-08-19] MEDS: (Bimatoprost (Lumigan) 1 DROP) EACHEYE SCH (08:22)
[2017-08-19] MEDS: GABAPENTIN 300 MG CAPSULE PO SCH ×3 (08:22→21:34)
[2017-08-19] MEDS: FOLIC ACID 1 MG TABLET PO SCH (08:22)
[2017-08-19] MEDS: TAMSULOSIN 0.4 MG CAP.ER.24H PO SCH (08:22)
[2017-08-19] MEDS: CILOSTAZOL 100 MG TABLET PO SCH ×2 (08:22→21:34)
[2017-08-19] MEDS: CHOLECALCIFEROL 400 UNITS TABLET PO SCH (08:22)
[2017-08-19] MEDS: THIAMINE 100MG TABLET PO SCH (08:22)
[2017-08-19] MEDS: MULTIVIT.W/IRON, MINERALS ORAL SOL PO SCH (08:23)
[2017-08-19] MEDS: SENNA/DOCUSATE TABLET PO SCH (08:23)
[2017-08-19] MEDS ORDERED: POTASSIUM CHLORIDE 20 MEQ TAB.ER.PRT PO ONE (08:30)
[2017-08-19] MEDS: INSULIN LISPRO 100 UNITS/ML, PEN SQ-INSULIN SCH (11:42)
[2017-08-19 13:10] VITALS: BP 109/67
[2017-08-19] MEDS: RIVAROXABAN 20 MG TABLET PO SCH (17:41)
[2017-08-19 20:03] VITALS: BP 142/67
[2017-08-19] MEDS: ATORVASTATIN 40 MG TABLET PO SCH (21:34)
[2017-08-20] MEDS: ACETAMINOPHEN 325 MG TABLET PO PRN ×3 (02:22→16:59)
[2017-08-20 03:02] VITALS: BP 131/69
[2017-08-20 06:53] VITALS: BP 123/70
[2017-08-20] MEDS: MULTIVIT.W/IRON, MINERALS ORAL SOL PO SCH (08:54)
[2017-08-20] MEDS ORDERED: MULTIVITAMINS/MINERALS TABLET PO SCH (09:00)
[2017-08-20] MEDS: SODIUM CHLORIDE FLUSH 10ML SYR IVF SCH ×2 (09:22→09:33)
[2017-08-20] MEDS: CHOLECALCIFEROL 400 UNITS TABLET PO SCH (09:30)
[2017-08-20] MEDS: THIAMINE 100MG TABLET PO SCH (09:31)
[2017-08-20] MEDS: CILOSTAZOL 100 MG TABLET PO SCH (09:31)
[2017-08-20] MEDS: FOLIC ACID 1 MG TABLET PO SCH (09:31)
[2017-08-20] MEDS: GABAPENTIN 300 MG CAPSULE PO SCH ×2 (09:31→16:59)
[2017-08-20] MEDS: TAMSULOSIN 0.4 MG CAP.ER.24H PO SCH (09:31)
[2017-08-20] MEDS: SENNA/DOCUSATE TABLET PO SCH (09:33)
[2017-08-20] MEDS: (Bimatoprost (Lumigan) 1 DROP) EACHEYE SCH (09:34)
[2017-08-20 12:53] VITALS: BP 141/59
[2017-08-20] MEDS ORDERED: ACET325T14 PO (12:54)
[2017-08-20] MEDS ORDERED: TAMS-11 PO (12:54)
[2017-08-20] MEDS ORDERED: THIA100T6 PO (12:54)
[2017-08-20] MEDS ORDERED: FOLI-17 PO (12:54)
[2017-08-20 16:46] VITALS: BP 147/82
[2017-08-20] MEDS: RIVAROXABAN 20 MG TABLET PO SCH (16:59)
== END 2017-08-20 17:05 | DRG 853 ==
LOC: ED 18:15 → EDIP 19:52 → 4NOR 20:45
PROVIDERS: ADMIT Internal Medicine; ATTEND Internal Medicine
PROC: 0Y6H0Z1 Detachment at Right Lower Leg, High, Open Approach (ICD-10-PCS; principal; 2017-08-12 18:00)
DX: A41.9 Sepsis, unspecified organism (principal); G93.41 Metabolic encephalopathy; I63.9 Cerebral infarction, unspecified; N17.0 Acute kidney failure with tubular necrosis; E43 Unspecified severe protein-calorie malnutrition; D68.69 Other thrombophilia; K76.0 Fatty (change of) liver, not elsewhere classified; J44.9 Chronic obstructive pulmonary disease, unspecified; E87.1 Hypo-osmolality and hyponatremia; N39.0 Urinary tract infection, site not specified; I73.9 Peripheral vascular disease, unspecified; D64.9 Anemia, unspecified; Z99.3 Dependence on wheelchair; Z87.891 Personal history of nicotine dependence; Z86.73 Personal history of transient ischemic attack (TIA), and cerebral infarction without residual deficits; Z86.711 Personal history of pulmonary embolism; Z79.01 Long term (current) use of anticoagulants; I71.4 Abdominal aortic aneurysm, without rupture; I65.22 Occlusion and stenosis of left carotid artery; I77.1 Stricture of artery; I25.10 Atherosclerotic heart disease of native coronary artery without angina pectoris; I10 Essential (primary) hypertension; G89.29 Other chronic pain; E78.5 Hyperlipidemia, unspecified; E78.00 Pure hypercholesterolemia, unspecified; E53.8 Deficiency of other specified B group vitamins; Z68.26 Body mass index [BMI] 26.0-26.9, adult
CPT/HCPCS: 36415; 70450; 71045; 76700; 80048; 80053; 81001; 82040; 82140; 82607; 82962; 83036; 83735; 85025; 85610; 85730; 87086; 88307; 88311; 93005; 99285; C1729; J0690; J0696; J1170; J1650; J2405; J2704; J3010; J1815; J2270; J3480; J7030

== ENCOUNTER 2017-10-28 13:49 | Inpatient (IN) | payer MEDICARE, MEDICAID ==
[~2017-10-28] VITALS: Ht 180.3 cm; Wt 72.3 kg
[~2017-10-28 13:49] MED LIST changes: +ACET325T14 PO; +FOLI-17 PO; +TAMS-11 PO; +THIA100T6 PO
[2017-10-28 14:29] LABS: BASOPHILS # (AUTO) 0.02 x10^3/uL (0-0.1); BASOPHILS % (AUTO) 0 % (0-1); EOSINOPHILS % (AUTO) 1 % (1-7); LYMPHOCYTES # (AUTO) 1.73 x10^3/uL (1-3.4); LYMPHOCYTES % (AUTO) 15 % (22-44); MD NO; MEAN CORPUSCULAR HEMOGLOBIN 29.7 pg (27.5-34.5); MEAN CORPUSCULAR HGB CONC 33.3 g/dL (33.2-36.2); MEAN PLATELET VOLUME 8.6 fL (7.4-10.4); MONOCYTES # (AUTO) 0.86 x10^3/uL (0.2-0.8); MONOCYTES % (AUTO) 7 % (2-9); NEUTROPHILS % (AUTO) 77 % (42-75); PLATELET COUNT 282 x10^3/uL (130-400); RED BLOOD COUNT 5.29 x10^6/uL (4.38-5.82); RED CELL DISTRIBUTION WIDTH 14.3 % (9.4-14.8)
[2017-10-28 14:40] LABS: ALBUMIN 3.9 g/dL (3.4-5.0); ANION GAP 9 mmol/L (5-15); CHLORIDE 99 mmol/L (98-107); CREATININE 0.88 mg/dL (0.7-1.3)
[2017-10-28] MEDS ORDERED: CEPH-376 PO (14:43)
[2017-10-28] MEDS ORDERED: MUPI22OI2 HOMETP (14:51)
[2017-10-28] MEDS ORDERED: HYDR2TAB40 PO (14:56)
[2017-10-28] MEDS ORDERED: AMPICILLIN/SULBACTAM 3 GM in SODIUM CHLORIDE 0.9% 100 ML IVPB ONE (15:00)
[2017-10-28] MEDS ORDERED: SODIUM CHLORIDE FLUSH 10ML SYR IVF ONE (15:00)
[2017-10-28] MEDS ORDERED: VANCOMYCIN PER PHARMACY MC PRN ×2 (15:00→18:00)
[2017-10-28 15:26] LABS: INTERNATIONAL NORMALIZED RATIO 1.29 (0.93-1.1); PROTHROMBIN TIME 13.2 Seconds (9.6-11.5)
[2017-10-28] MEDS ORDERED: PHARMACOKINETIC CONSULTATION MC ONE (16:00)
[2017-10-28] MEDS ORDERED: VANCOMYCIN 1,600 MG in SODIUM CHLORIDE 0.9% 250 ML IV ONE (16:00)
[2017-10-28] MEDS: AMPICILLIN/SULBACTAM 3 GM in SODIUM CHLORIDE 0.9% 100 ML IV SCH (18:00)
[2017-10-28] MEDS ORDERED: morphine SULFATE 10 MG/ML, 1ML IVPush PRN (18:00)
[2017-10-28] MEDS ORDERED: ACETAMINOPHEN 325 MG TABLET PO PRN (18:00)
[2017-10-28] MEDS ORDERED: ONDANSETRON ODT 4 MG PO PRN (18:00)
[2017-10-28 19:20] VITALS: BP 114/73
[2017-10-28] MEDS ORDERED: PHARMACOKINETIC MONITORING MC PRN (19:30)
[2017-10-28] MEDS: TEMPLATE NON-FORMULARY MED. (Dorzolamide Hcl/Timolol Maleat (Dorzolamide-Timolol Eye Drops EACHEYE SCH (19:55)
[2017-10-28] MEDS: ATORVASTATIN 40 MG TABLET PO SCH (20:05)
[2017-10-28] MEDS: SODIUM CHLORIDE 0.9% 1,000 ML IV SCH (20:05)
[2017-10-28] MEDS: HYDROcodone/APAP 5/325 TABLET PO PRN ×2 (20:05→21:18)
[2017-10-29] MEDS: AMPICILLIN/SULBACTAM 3 GM in SODIUM CHLORIDE 0.9% 100 ML IV SCH ×4 (00:26→18:09)
[2017-10-29 01:16] VITALS: BP 112/69
[2017-10-29] MEDS: HYDROcodone/APAP 5/325 TABLET PO PRN ×4 (02:24→21:05)
[2017-10-29 04:53] LABS: BASOPHILS # (AUTO) 0.05 x10^3/uL (0-0.1); BASOPHILS % (AUTO) 1 % (0-1); EOSINOPHILS # (AUTO) 0.14 x10^3/uL (0-0.4); EOSINOPHILS % (AUTO) 2 % (1-7); LYMPHOCYTES # (AUTO) 1.58 x10^3/uL (1-3.4); LYMPHOCYTES % (AUTO) 22 % (22-44); MD NO; MEAN CORPUSCULAR HEMOGLOBIN 29.3 pg (27.5-34.5); MEAN CORPUSCULAR HGB CONC 32.7 g/dL (33.2-36.2); MEAN CORPUSCULAR VOLUME 89.4 fL (81-97); MEAN PLATELET VOLUME 8.3 fL (7.4-10.4); MONOCYTES # (AUTO) 0.76 x10^3/uL (0.2-0.8); MONOCYTES % (AUTO) 11 % (2-9); NEUTROPHILS % (AUTO) 65 % (42-75); PLATELET COUNT 203 x10^3/uL (130-400); RED BLOOD COUNT 4.44 x10^6/uL (4.38-5.82); RED CELL DISTRIBUTION WIDTH 14.5 % (9.4-14.8)
[2017-10-29 04:55] LABS: CHLORIDE 103 mmol/L (98-107)
[2017-10-29 05:00] LABS: ALANINE AMINOTRANSFERASE 25 U/L (12-78); ALKALINE PHOSPHATASE 75 U/L (45-117); ANION GAP 9 mmol/L (5-15); BILIRUBIN,TOTAL 0.7 mg/dL (0.2-1.0); CALCIUM 7.9 mg/dL (8.5-10.1); CREATININE 0.78 mg/dL (0.7-1.3)
[2017-10-29 07:17] VITALS: BP 114/69
[2017-10-29] MEDS: LISINOPRIL 10 MG TABLET PO SCH (08:13)
[2017-10-29] MEDS: TEMPLATE NON-FORMULARY MED. (Dorzolamide Hcl/Timolol Maleat (Dorzolamide-Timolol Eye Drops EACHEYE SCH ×2 (08:15→21:00)
[2017-10-29] MEDS: TEMPLATE NON-FORMULARY MED. (Bimatoprost (Lumigan) 1 DROP) EACHEYE SCH (08:16)
[2017-10-29] MEDS: VANCOMYCIN 1,600 MG in SODIUM CHLORIDE 0.9% 250 ML IV SCH (12:57)
[2017-10-29] MEDS: SODIUM CHLORIDE 0.9% 1,000 ML IV SCH (13:03)
[2017-10-29 13:36] VITALS: BP 92/53
[2017-10-29 19:18] VITALS: BP 93/57
[2017-10-29] MEDS: ATORVASTATIN 40 MG TABLET PO SCH (21:05)
[2017-10-30] MEDS: AMPICILLIN/SULBACTAM 3 GM in SODIUM CHLORIDE 0.9% 100 ML IV SCH ×4 (00:21→18:04)
[2017-10-30 01:25] VITALS: BP 105/68
[2017-10-30] MEDS: HYDROcodone/APAP 5/325 TABLET PO PRN ×2 (06:18→10:57)
[2017-10-30 06:46] VITALS: BP 119/72
[2017-10-30] MEDS: VANCOMYCIN 1,600 MG in SODIUM CHLORIDE 0.9% 250 ML IV SCH (07:07)
[2017-10-30] MEDS: SODIUM CHLORIDE 0.9% 1,000 ML IV SCH ×2 (08:10→23:18)
[2017-10-30] MEDS: LISINOPRIL 10 MG TABLET PO SCH (08:10)
[2017-10-30] MEDS: TEMPLATE NON-FORMULARY MED. (Bimatoprost (Lumigan) 1 DROP) EACHEYE SCH (08:11)
[2017-10-30] MEDS: TEMPLATE NON-FORMULARY MED. (Dorzolamide Hcl/Timolol Maleat (Dorzolamide-Timolol Eye Drops EACHEYE SCH ×2 (08:11→21:00)
[2017-10-30 13:03] VITALS: BP 88/55
[2017-10-30 14:25] VITALS: BP 111/61
[2017-10-30 15:30] VITALS: BP 112/59
[2017-10-30] MEDS ORDERED: SODIUM CHLORIDE 0.9% 1,000ML IVBOLUS ONE (17:00)
[2017-10-30] MEDS ORDERED: CHLORDIAZEPOXIDE 25 MG CAPSULE PO PRN (18:00)
[2017-10-30] MEDS: LORazepam 2 MG/ML, 1ML IVPush PRN ×2 (18:33→21:19)
[2017-10-30 18:42] VITALS: BP 113/72
[2017-10-30] MEDS ORDERED: ZIPRASIDONE 20 MG INJ IM ONE (19:30)
[2017-10-30] MEDS: ATORVASTATIN 40 MG TABLET PO SCH (21:00)
[2017-10-31] MEDS: AMPICILLIN/SULBACTAM 3 GM in SODIUM CHLORIDE 0.9% 100 ML IV SCH ×4 (00:02→18:23)
[2017-10-31 00:29] VITALS: BP 124/70
[2017-10-31] MEDS: VANCOMYCIN 1,600 MG in SODIUM CHLORIDE 0.9% 250 ML IV SCH ×2 (01:04→20:31)
[2017-10-31] MEDS: LORazepam 2 MG/ML, 1ML IVPush PRN (01:39)
[2017-10-31] MEDS ORDERED: LORazepam 2 MG/ML, 1ML IV PRN ×3 (03:00→20:00)
[2017-10-31] MEDS: LORazepam 2 MG/ML, 1ML IV PRN ×3 (03:10→15:05)
[2017-10-31 07:46] VITALS: BP 155/75
[2017-10-31] MEDS: TEMPLATE NON-FORMULARY MED. (Dorzolamide Hcl/Timolol Maleat (Dorzolamide-Timolol Eye Drops EACHEYE SCH ×2 (09:35→21:00)
[2017-10-31] MEDS: TEMPLATE NON-FORMULARY MED. (Bimatoprost (Lumigan) 1 DROP) EACHEYE SCH (09:35)
[2017-10-31] MEDS ORDERED: MIDAZOLAM 1 MG/ML, 2ML ONE (10:31)
[2017-10-31] MEDS ORDERED: FENTANYL PF 100 MCG/2ML ONE (10:31)
[2017-10-31] MEDS ORDERED: PROPOFOL 10 MG/ML, 20ML ONE (11:00)
[2017-10-31] MEDS ORDERED: FENTANYL PF 100 MCG/2ML IV PRN (12:30)
[2017-10-31] MEDS ORDERED: ONDANSETRON ODT 8 MG PO PRN (12:30)
[2017-10-31] MEDS ORDERED: OXYcodone 5 MG/5 ML ORAL.SOL UDC PO PRN (12:30)
[2017-10-31] MEDS ORDERED: ALBUTEROL SULFATE 2.5 MG/3 ML NPPB PRN (12:30)
[2017-10-31] MEDS ORDERED: ACETAMINOPHEN 325 MG TABLET PO PRN (12:30)
[2017-10-31] MEDS ORDERED: MORPHINE SULFATE 4 MG/ML, 1ML IVPush PRN ×2 (12:30→14:00)
[2017-10-31 13:40] VITALS: BP 160/75
[2017-10-31] MEDS ORDERED: LORazepam 0.5MG TABLET PO PRN (14:00)
[2017-10-31] MEDS: SODIUM CHLORIDE 0.9% 1,000 ML IV SCH (15:05)
[2017-10-31 20:04] VITALS: BP 146/70
[2017-10-31] MEDS: ATORVASTATIN 40 MG TABLET PO SCH (20:36)
[2017-11-01 00:18] VITALS: BP 153/69
[2017-11-01] MEDS: HYDROcodone/APAP 5/325 TABLET PO PRN ×4 (00:36→15:15)
[2017-11-01] MEDS: AMPICILLIN/SULBACTAM 3 GM in SODIUM CHLORIDE 0.9% 100 ML IV SCH ×2 (00:41→06:21)
[2017-11-01 04:19] VITALS: BP 140/76
[2017-11-01 04:53] LABS: BASOPHILS # (AUTO) 0.06 x10^3/uL (0-0.1); BASOPHILS % (AUTO) 1 % (0-1); EOSINOPHILS # (AUTO) 0.13 x10^3/uL (0-0.4); EOSINOPHILS % (AUTO) 2 % (1-7); LYMPHOCYTES # (AUTO) 1.35 x10^3/uL (1-3.4); LYMPHOCYTES % (AUTO) 15 % (22-44); MD NO; MEAN CORPUSCULAR HEMOGLOBIN 29.4 pg (27.5-34.5); MEAN CORPUSCULAR HGB CONC 33.2 g/dL (33.2-36.2); MEAN CORPUSCULAR VOLUME 88.7 fL (81-97); MEAN PLATELET VOLUME 8.8 fL (7.4-10.4); MONOCYTES # (AUTO) 0.73 x10^3/uL (0.2-0.8); MONOCYTES % (AUTO) 8 % (2-9); NEUTROPHILS # (AUTO) 6.64 x10^3/uL (1.8-6.8); NEUTROPHILS % (AUTO) 75 % (42-75); PLATELET COUNT 192 x10^3/uL (130-400); RED BLOOD COUNT 4.32 x10^6/uL (4.38-5.82); RED CELL DISTRIBUTION WIDTH 14.4 % (9.4-14.8)
[2017-11-01 05:02] LABS: ANION GAP 9 mmol/L (5-15); CALCIUM 8.1 mg/dL (8.5-10.1); CHLORIDE 109 mmol/L (98-107)
[2017-11-01] MEDS: LORazepam 2 MG/ML, 1ML IV PRN ×2 (05:35→19:38)
[2017-11-01] MEDS ORDERED: MAGNESIUM SULFATE PMX 2GM/50ML 50 ML IV ONE (07:00)
[2017-11-01 07:08] VITALS: BP 163/73
[2017-11-01] MEDS: ENOXAPARIN 40 MG/0.4 ML SQ SCH (07:48)
[2017-11-01] MEDS: SODIUM CHLORIDE 0.9% 1,000 ML IV SCH ×2 (07:52→20:05)
[2017-11-01] MEDS: BEER 12 OZ CAN PO SCH ×2 (08:31→17:23)
[2017-11-01] MEDS: TEMPLATE NON-FORMULARY MED. (Dorzolamide Hcl/Timolol Maleat (Dorzolamide-Timolol Eye Drops EACHEYE SCH ×2 (09:00→21:00)
[2017-11-01] MEDS: TEMPLATE NON-FORMULARY MED. (Bimatoprost (Lumigan) 1 DROP) EACHEYE SCH (09:00)
[2017-11-01] MEDS: POTASSIUM CHLORIDE 20 MEQ, MAGNESIUM SULFATE 1 GM, FOLIC ACID 1 MG, THIAMINE 200 MG, MV... IV SCH (09:50)
[2017-11-01 14:40] VITALS: BP 148/72
[2017-11-01] MEDS: VANCOMYCIN 1,400 MG in SODIUM CHLORIDE 0.9% 250 ML IV SCH (15:49)
[2017-11-01 18:37] VITALS: BP 167/71
[2017-11-01] MEDS: ATORVASTATIN 40 MG TABLET PO SCH (19:39)
[2017-11-01] MEDS ORDERED: LORazepam 2 MG/ML, 1ML IVPush ONE (22:00)
[2017-11-02 00:44] VITALS: BP 162/70
[2017-11-02] MEDS: LORazepam 2 MG/ML, 1ML IV PRN ×5 (02:18→20:54)
[2017-11-02 06:42] VITALS: BP 161/83
[2017-11-02] MEDS: HYDROcodone/APAP 5/325 TABLET PO PRN (06:49)
[2017-11-02] MEDS: BEER 12 OZ CAN PO SCH ×3 (08:00→17:00)
[2017-11-02] MEDS: ENOXAPARIN 40 MG/0.4 ML SQ SCH (09:49)
[2017-11-02] MEDS: POTASSIUM CHLORIDE 20 MEQ, MAGNESIUM SULFATE 1 GM, FOLIC ACID 1 MG, THIAMINE 200 MG, MV... IV SCH (09:49)
[2017-11-02] MEDS: TEMPLATE NON-FORMULARY MED. (Dorzolamide Hcl/Timolol Maleat (Dorzolamide-Timolol Eye Drops EACHEYE SCH ×2 (09:49→21:02)
[2017-11-02] MEDS: TEMPLATE NON-FORMULARY MED. (Bimatoprost (Lumigan) 1 DROP) EACHEYE SCH (09:49)
[2017-11-02] MEDS: VANCOMYCIN 1,400 MG in SODIUM CHLORIDE 0.9% 250 ML IV SCH (10:14)
[2017-11-02 12:30] VITALS: BP 165/73
[2017-11-02] MEDS ORDERED: LACTOBACILLUS CHEW TABLET ONE (15:36)
[2017-11-02] MEDS: AMPICILLIN/SULBACTAM 3 GM in SODIUM CHLORIDE 0.9% 100 ML IV SCH ×2 (17:27→23:43)
[2017-11-02] MEDS: SODIUM CHLORIDE 0.9% 1,000 ML IV SCH (17:28)
[2017-11-02 20:41] VITALS: BP 175/78
[2017-11-02] MEDS: ATORVASTATIN 40 MG TABLET PO SCH (20:55)
[2017-11-03 01:09] VITALS: BP 164/74
[2017-11-03] MEDS: LORazepam 2 MG/ML, 1ML IV PRN ×6 (02:16→21:34)
[2017-11-03] MEDS: SODIUM CHLORIDE 0.9% 1,000 ML IV SCH ×2 (04:34→16:48)
[2017-11-03] MEDS: VANCOMYCIN 1,400 MG in SODIUM CHLORIDE 0.9% 250 ML IV SCH ×2 (04:35→22:40)
[2017-11-03] MEDS: AMPICILLIN/SULBACTAM 3 GM in SODIUM CHLORIDE 0.9% 100 ML IV SCH ×3 (06:27→16:47)
[2017-11-03 07:19] VITALS: BP 167/74
[2017-11-03] MEDS: BEER 12 OZ CAN PO SCH ×2 (08:00→16:48)
[2017-11-03] MEDS: ENOXAPARIN 40 MG/0.4 ML SQ SCH (09:10)
[2017-11-03] MEDS: TEMPLATE NON-FORMULARY MED. (Bimatoprost (Lumigan) 1 DROP) EACHEYE SCH (09:10)
[2017-11-03] MEDS: TEMPLATE NON-FORMULARY MED. (Dorzolamide Hcl/Timolol Maleat (Dorzolamide-Timolol Eye Drops EACHEYE SCH ×2 (09:10→21:35)
[2017-11-03] MEDS: ONDANSETRON 2MG/ML, 2ML IVPush PRN ×2 (11:41→11:55)
[2017-11-03 12:48] VITALS: BP 133/72
[2017-11-03] MEDS ORDERED: METHYLNALTREXONE 12 MG/0.6 ML SQ ONE (19:00)
[2017-11-03] MEDS ORDERED: MAGNESIUM CITRATE 300ML ORAL SOL PO ONE (19:00)
[2017-11-03 20:00] VITALS: BP 135/74
[2017-11-03] MEDS: ATORVASTATIN 40 MG TABLET PO SCH (21:34)
[2017-11-04] MEDS: AMPICILLIN/SULBACTAM 3 GM in SODIUM CHLORIDE 0.9% 100 ML IV SCH ×3 (00:27→12:20)
[2017-11-04] MEDS: LORazepam 2 MG/ML, 1ML IV PRN ×2 (00:27→06:14)
[2017-11-04 01:05] VITALS: BP 143/68
[2017-11-04] MEDS: ASPIRIN 81 MG TABLET EC PO SCH (05:26)
[2017-11-04] MEDS: SODIUM CHLORIDE 0.9% 1,000 ML IV SCH ×2 (05:26→21:20)
[2017-11-04 07:04] VITALS: BP 129/71
[2017-11-04] MEDS: BEER 12 OZ CAN PO SCH ×2 (08:00→17:00)
[2017-11-04] MEDS ORDERED: ACETAMINOPHEN 325 MG TABLET PO PRN (08:30)
[2017-11-04] MEDS: TEMPLATE NON-FORMULARY MED. (Bimatoprost (Lumigan) 1 DROP) EACHEYE SCH (09:25)
[2017-11-04] MEDS: TEMPLATE NON-FORMULARY MED. (Dorzolamide Hcl/Timolol Maleat (Dorzolamide-Timolol Eye Drops EACHEYE SCH ×2 (09:25→22:19)
[2017-11-04] MEDS: ENOXAPARIN 40 MG/0.4 ML SQ SCH (09:28)
[2017-11-04 12:14] VITALS: BP 164/76
[2017-11-04] MEDS: CEFAZOLIN PMX 1GM/50ML 50 ML IV SCH ×2 (14:29→22:19)
[2017-11-04 19:00] VITALS: BP 141/67
[2017-11-04] MEDS: ATORVASTATIN 40 MG TABLET PO SCH (22:20)
[2017-11-05 01:56] VITALS: BP 139/76
[2017-11-05] MEDS: HYDROcodone/APAP 5/325 TABLET PO PRN ×2 (02:13→14:05)
[2017-11-05] MEDS: CEFAZOLIN PMX 1GM/50ML 50 ML IV SCH ×3 (05:54→22:30)
[2017-11-05] MEDS: SODIUM CHLORIDE 0.9% 1,000 ML IV SCH ×2 (05:54→20:49)
[2017-11-05] MEDS: ASPIRIN 81 MG TABLET EC PO SCH (05:55)
[2017-11-05] MEDS: BEER 12 OZ CAN PO SCH (08:00)
[2017-11-05 08:15] VITALS: BP 148/75
[2017-11-05] MEDS: ENOXAPARIN 40 MG/0.4 ML SQ SCH (08:27)
[2017-11-05] MEDS: TEMPLATE NON-FORMULARY MED. (Bimatoprost (Lumigan) 1 DROP) EACHEYE SCH (08:28)
[2017-11-05] MEDS: TEMPLATE NON-FORMULARY MED. (Dorzolamide Hcl/Timolol Maleat (Dorzolamide-Timolol Eye Drops EACHEYE SCH ×2 (08:28→20:50)
[2017-11-05 13:21] VITALS: BP 161/71
[2017-11-05 19:09] VITALS: BP 134/70
[2017-11-05] MEDS: GABAPENTIN 100 MG CAPSULE PO SCH (20:49)
[2017-11-05] MEDS: ATORVASTATIN 40 MG TABLET PO SCH (20:49)
[2017-11-06 01:25] VITALS: BP 146/79
[2017-11-06] MEDS: HYDROcodone/APAP 5/325 TABLET PO PRN ×2 (04:51→14:12)
[2017-11-06] MEDS: ASPIRIN 81 MG TABLET EC PO SCH (04:51)
[2017-11-06] MEDS: CEFAZOLIN PMX 1GM/50ML 50 ML IV SCH ×3 (05:51→22:54)
[2017-11-06 07:30] VITALS: BP 149/70
[2017-11-06] MEDS: BEER 12 OZ CAN PO SCH ×2 (09:00→18:51)
[2017-11-06] MEDS: GABAPENTIN 100 MG CAPSULE PO SCH ×2 (09:01→20:31)
[2017-11-06] MEDS: ENOXAPARIN 40 MG/0.4 ML SQ SCH (09:01)
[2017-11-06] MEDS: TEMPLATE NON-FORMULARY MED. (Bimatoprost (Lumigan) 1 DROP) EACHEYE SCH (09:02)
[2017-11-06] MEDS: TEMPLATE NON-FORMULARY MED. (Dorzolamide Hcl/Timolol Maleat (Dorzolamide-Timolol Eye Drops EACHEYE SCH ×2 (09:02→21:03)
[2017-11-06] MEDS: SODIUM CHLORIDE 0.9% 1,000 ML IV SCH ×2 (12:23→18:37)
[2017-11-06 13:44] VITALS: BP 145/75
[2017-11-06] MEDS ORDERED: RIVAROXABAN 20 MG TABLET PO SCH (18:00)
[2017-11-06] MEDS: CARVEDILOL 3.125 MG TABLET PO SCH (18:36)
[2017-11-06 20:21] VITALS: BP 118/66
[2017-11-06] MEDS: ATORVASTATIN 40 MG TABLET PO SCH (20:31)
[2017-11-07 01:39] VITALS: BP 133/76
[2017-11-07] MEDS: SODIUM CHLORIDE 0.9% 1,000 ML IV SCH ×2 (05:01→23:53)
[2017-11-07] MEDS: CEFAZOLIN PMX 1GM/50ML 50 ML IV SCH ×3 (05:55→22:00)
[2017-11-07] MEDS: ASPIRIN 81 MG TABLET EC PO SCH (05:56)
[2017-11-07] MEDS: CARVEDILOL 3.125 MG TABLET PO SCH ×2 (05:56→17:51)
[2017-11-07 07:20] VITALS: BP 144/73
[2017-11-07] MEDS: TEMPLATE NON-FORMULARY MED. (Dorzolamide Hcl/Timolol Maleat (Dorzolamide-Timolol Eye Drops EACHEYE SCH ×2 (07:47→21:23)
[2017-11-07] MEDS: GABAPENTIN 100 MG CAPSULE PO SCH ×2 (07:47→21:21)
[2017-11-07] MEDS: TEMPLATE NON-FORMULARY MED. (Bimatoprost (Lumigan) 1 DROP) EACHEYE SCH (07:47)
[2017-11-07] MEDS: ENOXAPARIN 40 MG/0.4 ML SQ SCH (08:05)
[2017-11-07] MEDS: BEER 12 OZ CAN PO SCH (08:06)
[2017-11-07] MEDS: ACETAMINOPHEN 325 MG TABLET PO SCH ×3 (08:30→23:55)
[2017-11-07] MEDS: HYDROcodone/APAP 5/325 TABLET PO PRN (08:51)
[2017-11-07 13:36] VITALS: BP 137/74
[2017-11-07] MEDS ORDERED: HALOPERIDOL 1 MG TABLET ONE (14:25)
[2017-11-07] MEDS: HALOPERIDOL 5 MG TABLET PO PRN ×2 (14:30→21:21)
[2017-11-07] MEDS: RISPERIDONE 0.5 MG TABLET PO SCH ×2 (17:50→21:23)
[2017-11-07] MEDS: BISACODYL 5 MG EC TABLET PO PRN (17:50)
[2017-11-07 18:45] VITALS: BP 132/77
[2017-11-07] MEDS: ATORVASTATIN 40 MG TABLET PO SCH (21:21)
[2017-11-08 02:35] VITALS: BP 135/70
[2017-11-08] MEDS: CEFAZOLIN PMX 1GM/50ML 50 ML IV SCH ×3 (06:11→22:14)
[2017-11-08] MEDS: ASPIRIN 81 MG TABLET EC PO SCH (06:20)
[2017-11-08] MEDS: CARVEDILOL 3.125 MG TABLET PO SCH ×2 (06:20→18:15)
[2017-11-08] MEDS: ACETAMINOPHEN 325 MG TABLET PO SCH ×3 (06:20→18:00)
[2017-11-08 07:03] VITALS: BP 155/71
[2017-11-08] MEDS: TEMPLATE NON-FORMULARY MED. (Bimatoprost (Lumigan) 1 DROP) EACHEYE SCH (09:00)
[2017-11-08] MEDS: TEMPLATE NON-FORMULARY MED. (Dorzolamide Hcl/Timolol Maleat (Dorzolamide-Timolol Eye Drops EACHEYE SCH ×2 (09:00→20:20)
[2017-11-08] MEDS: ENOXAPARIN 40 MG/0.4 ML SQ SCH (09:27)
[2017-11-08] MEDS: GABAPENTIN 100 MG CAPSULE PO SCH ×2 (09:27→20:20)
[2017-11-08 13:19] VITALS: BP 138/75
[2017-11-08] MEDS: HYDROcodone/APAP 5/325 TABLET PO PRN ×2 (16:06→20:20)
[2017-11-08] MEDS ORDERED: LORazepam 0.5MG TABLET PO PRN (17:30)
[2017-11-08] MEDS ORDERED: LORazepam 1MG TABLET PO PRN ×4 (17:30)
[2017-11-08] MEDS ORDERED: LORazepam 2 MG/ML, 1ML IV PRN ×5 (17:30)
[2017-11-08 18:12] LABS: BASOPHILS # (AUTO) 0.04 x10^3/uL (0-0.1); BASOPHILS % (AUTO) 0 % (0-1); EOSINOPHILS # (AUTO) 0.16 x10^3/uL (0-0.4); EOSINOPHILS % (AUTO) 2 % (1-7); LYMPHOCYTES # (AUTO) 1.35 x10^3/uL (1-3.4); LYMPHOCYTES % (AUTO) 13 % (22-44); MD NO; MEAN CORPUSCULAR HGB CONC 32.9 g/dL (33.2-36.2); MEAN CORPUSCULAR VOLUME 88.1 fL (81-97); MEAN PLATELET VOLUME 7.8 fL (7.4-10.4); MONOCYTES # (AUTO) 0.91 x10^3/uL (0.2-0.8); MONOCYTES % (AUTO) 9 % (2-9); NEUTROPHILS % (AUTO) 77 % (42-75); PLATELET COUNT 372 x10^3/uL (130-400); RED BLOOD COUNT 4.46 x10^6/uL (4.38-5.82); RED CELL DISTRIBUTION WIDTH 14.3 % (9.4-14.8)
[2017-11-08] MEDS: SODIUM CHLORIDE 0.9% 1,000 ML IV SCH (18:16)
[2017-11-08 18:19] LABS: ANION GAP 8 mmol/L (5-15); CALCIUM 9.1 mg/dL (8.5-10.1); CHLORIDE 105 mmol/L (98-107)
[2017-11-08 19:50] VITALS: BP 160/76
[2017-11-08] MEDS: RISPERIDONE 0.5 MG TABLET PO SCH (20:20)
[2017-11-08] MEDS: ATORVASTATIN 40 MG TABLET PO SCH (20:20)
[2017-11-09 02:19] VITALS: BP 155/79
[2017-11-09] MEDS: ACETAMINOPHEN 325 MG TABLET PO SCH ×5 (05:33→22:09)
[2017-11-09] MEDS: CEFAZOLIN PMX 1GM/50ML 50 ML IV SCH ×3 (05:33→22:09)
[2017-11-09] MEDS: CARVEDILOL 3.125 MG TABLET PO SCH ×2 (05:33→17:21)
[2017-11-09] MEDS: ASPIRIN 81 MG TABLET EC PO SCH (05:33)
[2017-11-09 05:38] LABS: BASOPHILS # (AUTO) 0.04 x10^3/uL (0-0.1); BASOPHILS % (AUTO) 1 % (0-1); EOSINOPHILS # (AUTO) 0.21 x10^3/uL (0-0.4); EOSINOPHILS % (AUTO) 3 % (1-7); LYMPHOCYTES # (AUTO) 1.12 x10^3/uL (1-3.4); LYMPHOCYTES % (AUTO) 14 % (22-44); MD NO; MEAN CORPUSCULAR HGB CONC 32.9 g/dL (33.2-36.2); MEAN CORPUSCULAR VOLUME 88.3 fL (81-97); MONOCYTES # (AUTO) 0.75 x10^3/uL (0.2-0.8); MONOCYTES % (AUTO) 9 % (2-9); NEUTROPHILS # (AUTO) 6.17 x10^3/uL (1.8-6.8); NEUTROPHILS % (AUTO) 74 % (42-75); PLATELET COUNT 353 x10^3/uL (130-400); RED BLOOD COUNT 4.57 x10^6/uL (4.38-5.82); RED CELL DISTRIBUTION WIDTH 14.5 % (9.4-14.8)
[2017-11-09 05:47] LABS: ALBUMIN 2.6 g/dL (3.4-5.0); ANION GAP 6 mmol/L (5-15); CALCIUM 9.2 mg/dL (8.5-10.1); CHLORIDE 103 mmol/L (98-107)
[2017-11-09 05:51] LABS: HCT (SEDRATE) 40.4 % (39.2-51.8)
[2017-11-09 05:58] LABS: ALANINE AMINOTRANSFERASE 34 U/L (12-78); ALKALINE PHOSPHATASE 65 U/L (45-117); BILIRUBIN,TOTAL 0.4 mg/dL (0.2-1.0); CREATININE 0.65 mg/dL (0.7-1.3); TOTAL PROTEIN 7.8 g/dL (6.4-8.2)
[2017-11-09 06:48] VITALS: BP 128/77
[2017-11-09] MEDS: ENOXAPARIN 40 MG/0.4 ML SQ SCH (08:14)
[2017-11-09] MEDS: GABAPENTIN 100 MG CAPSULE PO SCH (08:15)
[2017-11-09] MEDS: TEMPLATE NON-FORMULARY MED. (Bimatoprost (Lumigan) 1 DROP) EACHEYE SCH (08:16)
[2017-11-09] MEDS: TEMPLATE NON-FORMULARY MED. (Dorzolamide Hcl/Timolol Maleat (Dorzolamide-Timolol Eye Drops EACHEYE SCH ×2 (08:16→19:37)
[2017-11-09] MEDS: HYDROcodone/APAP 5/325 TABLET PO PRN ×2 (08:45→19:36)
[2017-11-09] MEDS ORDERED: GABAPENTIN 300 MG CAPSULE PO SCH ×2 (09:00→16:00)
[2017-11-09] MEDS ORDERED: GABAPENTIN 300 MG CAPSULE ONE (10:06)
[2017-11-09] MEDS: GABAPENTIN 300 MG CAPSULE PO SCH ×3 (10:08→19:36)
[2017-11-09 13:00] VITALS: BP 174/79
[2017-11-09] MEDS: SODIUM CHLORIDE 0.9% 1,000 ML IV SCH (16:01)
[2017-11-09 19:30] VITALS: BP 132/78
[2017-11-09] MEDS: ATORVASTATIN 40 MG TABLET PO SCH (19:36)
[2017-11-09] MEDS: BISACODYL 5 MG EC TABLET PO PRN (19:36)
[2017-11-09] MEDS: RISPERIDONE 0.5 MG TABLET PO SCH (19:36)
[2017-11-10] MEDS: SODIUM CHLORIDE 0.9% 1,000 ML IV SCH (00:36)
[2017-11-10 01:59] VITALS: BP 157/71
[2017-11-10] MEDS: ACETAMINOPHEN 325 MG TABLET PO SCH ×4 (06:00→17:25)
[2017-11-10] MEDS: CARVEDILOL 3.125 MG TABLET PO SCH ×2 (06:08→17:24)
[2017-11-10] MEDS: ASPIRIN 81 MG TABLET EC PO SCH (06:08)
[2017-11-10] MEDS: CEFAZOLIN PMX 1GM/50ML 50 ML IV SCH ×3 (06:08→22:29)
[2017-11-10 07:00] VITALS: BP 138/78
[2017-11-10] MEDS: GABAPENTIN 300 MG CAPSULE PO SCH ×3 (08:51→22:09)
[2017-11-10] MEDS: ENOXAPARIN 40 MG/0.4 ML SQ SCH (08:51)
[2017-11-10] MEDS: TEMPLATE NON-FORMULARY MED. (Dorzolamide Hcl/Timolol Maleat (Dorzolamide-Timolol Eye Drops EACHEYE SCH ×2 (08:52→21:00)
[2017-11-10 14:36] VITALS: BP 172/81
[2017-11-10 18:45] VITALS: BP 159/77
[2017-11-10] MEDS: TEMPLATE NON-FORMULARY MED. (Bimatoprost (Lumigan) 1 DROP) EACHEYE SCH (21:00)
[2017-11-10] MEDS: RISPERIDONE 0.5 MG TABLET PO SCH (22:09)
[2017-11-10] MEDS: ATORVASTATIN 40 MG TABLET PO SCH (22:09)
[2017-11-11 01:34] VITALS: BP 161/79
[2017-11-11 01:55] VITALS: BP 152/80
[2017-11-11] MEDS: CEFAZOLIN PMX 1GM/50ML 50 ML IV SCH ×3 (05:53→22:43)
[2017-11-11] MEDS: ACETAMINOPHEN 325 MG TABLET PO SCH ×4 (05:56→18:41)
[2017-11-11] MEDS: CARVEDILOL 3.125 MG TABLET PO SCH ×2 (05:56→18:41)
[2017-11-11] MEDS: ASPIRIN 81 MG TABLET EC PO SCH (05:56)
[2017-11-11 05:57] VITALS: BP 128/78
[2017-11-11 07:00] VITALS: BP 150/83
[2017-11-11] MEDS ORDERED: ISOSORBIDE DINITRATE 20 MG TABLET ONE ×3 (08:29→19:29)
[2017-11-11] MEDS: TEMPLATE NON-FORMULARY MED. (Dorzolamide Hcl/Timolol Maleat (Dorzolamide-Timolol Eye Drops EACHEYE SCH ×2 (08:47→19:36)
[2017-11-11] MEDS: ENOXAPARIN 40 MG/0.4 ML SQ SCH (08:47)
[2017-11-11] MEDS: GABAPENTIN 300 MG CAPSULE PO SCH ×3 (08:52→19:35)
[2017-11-11] MEDS: ISOSORBIDE DINITRATE 10 MG TABLET PO SCH ×4 (08:52→19:35)
[2017-11-11 15:17] VITALS: BP 145/79
[2017-11-11] MEDS: SODIUM CHLORIDE 0.9% 1,000 ML IV SCH (19:34)
[2017-11-11] MEDS: TEMPLATE NON-FORMULARY MED. (Bimatoprost (Lumigan) 1 DROP) EACHEYE SCH (19:35)
[2017-11-11] MEDS: QUETIAPINE 25MG TABLET PO SCH (19:35)
[2017-11-11] MEDS: ATORVASTATIN 40 MG TABLET PO SCH (19:35)
[2017-11-11 19:44] VITALS: BP 148/67
[2017-11-12 04:27] VITALS: BP 150/71
[2017-11-12] MEDS: ASPIRIN 81 MG TABLET EC PO SCH (05:43)
[2017-11-12] MEDS: CARVEDILOL 3.125 MG TABLET PO SCH ×2 (05:43→18:20)
[2017-11-12] MEDS: ACETAMINOPHEN 325 MG TABLET PO SCH ×4 (05:43→18:20)
[2017-11-12] MEDS: CEFAZOLIN PMX 1GM/50ML 50 ML IV SCH ×3 (06:00→22:24)
[2017-11-12 07:29] VITALS: BP 142/67
[2017-11-12] MEDS: TEMPLATE NON-FORMULARY MED. (Dorzolamide Hcl/Timolol Maleat (Dorzolamide-Timolol Eye Drops EACHEYE SCH ×2 (09:00→19:56)
[2017-11-12] MEDS: GABAPENTIN 300 MG CAPSULE PO SCH ×3 (09:36→19:55)
[2017-11-12] MEDS: ISOSORBIDE DINITRATE 10 MG TABLET PO SCH ×3 (09:37→19:55)
[2017-11-12] MEDS: ENOXAPARIN 40 MG/0.4 ML SQ SCH (09:37)
[2017-11-12 13:45] VITALS: BP 131/67
[2017-11-12] MEDS: SODIUM CHLORIDE 0.9% 1,000 ML IV SCH (14:29)
[2017-11-12 19:28] VITALS: BP 133/60
[2017-11-12] MEDS: QUETIAPINE 25MG TABLET PO SCH (19:55)
[2017-11-12] MEDS: ATORVASTATIN 40 MG TABLET PO SCH (19:55)
[2017-11-12] MEDS: TEMPLATE NON-FORMULARY MED. (Bimatoprost (Lumigan) 1 DROP) EACHEYE SCH (19:56)
[2017-11-13] MEDS: ACETAMINOPHEN 325 MG TABLET PO SCH ×4 (00:21→17:49)
[2017-11-13 00:43] VITALS: BP 132/76
[2017-11-13] MEDS: HYDROcodone/APAP 5/325 TABLET PO PRN ×2 (01:22→02:26)
[2017-11-13 05:41] VITALS: BP 148/67
[2017-11-13] MEDS: ASPIRIN 81 MG TABLET EC PO SCH (05:42)
[2017-11-13] MEDS: CARVEDILOL 3.125 MG TABLET PO SCH ×2 (05:43→17:08)
[2017-11-13] MEDS: CEFAZOLIN PMX 1GM/50ML 50 ML IV SCH ×2 (05:43→17:09)
[2017-11-13 07:12] VITALS: BP 128/78
[2017-11-13] MEDS ORDERED: BISACODYL 5 MG EC TABLET PO ONE (07:30)
[2017-11-13] MEDS: SODIUM CHLORIDE 0.9% 1,000 ML IV SCH (08:18)
[2017-11-13] MEDS: ISOSORBIDE DINITRATE 10 MG TABLET PO SCH ×3 (08:20→21:13)
[2017-11-13] MEDS: SENNA/DOCUSATE TABLET PO SCH ×2 (08:20→21:13)
[2017-11-13] MEDS: GABAPENTIN 300 MG CAPSULE PO SCH ×3 (08:20→21:12)
[2017-11-13] MEDS: ENOXAPARIN 40 MG/0.4 ML SQ SCH (08:20)
[2017-11-13] MEDS: TEMPLATE NON-FORMULARY MED. (Dorzolamide Hcl/Timolol Maleat (Dorzolamide-Timolol Eye Drops EACHEYE SCH ×3 (08:23→21:13)
[2017-11-13 12:43] VITALS: BP 115/65
[2017-11-13] MEDS: ATORVASTATIN 40 MG TABLET PO SCH (21:12)
[2017-11-13] MEDS: QUETIAPINE 25MG TABLET PO SCH (21:12)
[2017-11-13] MEDS: TEMPLATE NON-FORMULARY MED. (Bimatoprost (Lumigan) 1 DROP) EACHEYE SCH (21:13)
[2017-11-13 22:41] VITALS: BP 127/75
[2017-11-14] VITALS (7 sets, daily range): BP systolic 94–170; BP diastolic 48–89
[2017-11-14] MEDS: CEFAZOLIN PMX 1GM/50ML 50 ML IV SCH ×3 (00:19→16:47)
[2017-11-14] MEDS: ACETAMINOPHEN 325 MG TABLET PO SCH ×4 (00:27→16:47)
[2017-11-14] MEDS: CARVEDILOL 3.125 MG TABLET PO SCH ×2 (06:39→16:48)
[2017-11-14] MEDS: ASPIRIN 81 MG TABLET EC PO SCH (06:39)
[2017-11-14] MEDS: ISOSORBIDE DINITRATE 10 MG TABLET PO SCH ×3 (09:01→20:02)
[2017-11-14] MEDS: GABAPENTIN 300 MG CAPSULE PO SCH ×3 (09:01→20:00)
[2017-11-14] MEDS: ENOXAPARIN 40 MG/0.4 ML SQ SCH (09:01)
[2017-11-14] MEDS: SENNA/DOCUSATE TABLET PO SCH ×2 (09:02→20:01)
[2017-11-14] MEDS: TEMPLATE NON-FORMULARY MED. (Dorzolamide Hcl/Timolol Maleat (Dorzolamide-Timolol Eye Drops EACHEYE SCH ×2 (09:02→20:08)
[2017-11-14] MEDS: SODIUM CHLORIDE 0.9% 1,000 ML IV SCH (15:02)
[2017-11-14] MEDS: HYDROcodone/APAP 5/325 TABLET PO PRN (16:48)
[2017-11-14] MEDS ORDERED: ISOSORBIDE DINITRATE 20 MG TABLET ONE (19:53)
[2017-11-14] MEDS: ATORVASTATIN 40 MG TABLET PO SCH (20:00)
[2017-11-14] MEDS: QUETIAPINE 25MG TABLET PO SCH (20:00)
[2017-11-14] MEDS: TEMPLATE NON-FORMULARY MED. (Bimatoprost (Lumigan) 1 DROP) EACHEYE SCH (20:08)
[2017-11-15] MEDS: CEFAZOLIN PMX 1GM/50ML 50 ML IV SCH ×4 (00:12→23:57)
[2017-11-15 00:27] VITALS: BP 116/57
[2017-11-15 05:02] LABS: BASOPHILS # (AUTO) 0.02 x10^3/uL (0-0.1); BASOPHILS % (AUTO) 0 % (0-1); EOSINOPHILS # (AUTO) 0.25 x10^3/uL (0-0.4); EOSINOPHILS % (AUTO) 3 % (1-7); LYMPHOCYTES # (AUTO) 1.16 x10^3/uL (1-3.4); LYMPHOCYTES % (AUTO) 14 % (22-44); MD NO; MEAN CORPUSCULAR HEMOGLOBIN 28.2 pg (27.5-34.5); MEAN CORPUSCULAR HGB CONC 32.4 g/dL (33.2-36.2); MEAN PLATELET VOLUME 7.7 fL (7.4-10.4); MONOCYTES # (AUTO) 0.79 x10^3/uL (0.2-0.8); MONOCYTES % (AUTO) 9 % (2-9); NEUTROPHILS # (AUTO) 6.19 x10^3/uL (1.8-6.8); NEUTROPHILS % (AUTO) 74 % (42-75); PLATELET COUNT 446 x10^3/uL (130-400); RED BLOOD COUNT 4.15 x10^6/uL (4.38-5.82); RED CELL DISTRIBUTION WIDTH 14.9 % (9.4-14.8)
[2017-11-15 05:04] LABS: ALBUMIN 2.5 g/dL (3.4-5.0); ANION GAP 6 mmol/L (5-15); CALCIUM 8.3 mg/dL (8.5-10.1); CHLORIDE 106 mmol/L (98-107)
[2017-11-15] MEDS: ASPIRIN 81 MG TABLET EC PO SCH (05:05)
[2017-11-15] MEDS: CARVEDILOL 3.125 MG TABLET PO SCH ×2 (05:06→17:04)
[2017-11-15] MEDS: ACETAMINOPHEN 325 MG TABLET PO SCH ×4 (05:10→17:04)
[2017-11-15 05:12] LABS: ALANINE AMINOTRANSFERASE 26 U/L (12-78); ALKALINE PHOSPHATASE 63 U/L (45-117); BILIRUBIN,TOTAL 0.5 mg/dL (0.2-1.0); CREATININE 0.59 mg/dL (0.7-1.3); HCT (SEDRATE) 36.1 % (39.2-51.8); TOTAL PROTEIN 6.7 g/dL (6.4-8.2)
[2017-11-15 08:00] VITALS: BP 91/57
[2017-11-15] MEDS: ISOSORBIDE DINITRATE 10 MG TABLET PO SCH ×3 (08:17→20:16)
[2017-11-15] MEDS: HYDROcodone/APAP 5/325 TABLET PO PRN ×2 (08:27→19:13)
[2017-11-15] MEDS: ENOXAPARIN 40 MG/0.4 ML SQ SCH (08:27)
[2017-11-15] MEDS: SODIUM CHLORIDE 0.9% 1,000 ML IV SCH (08:27)
[2017-11-15] MEDS: GABAPENTIN 300 MG CAPSULE PO SCH ×3 (08:27→20:15)
[2017-11-15] MEDS: SENNA/DOCUSATE TABLET PO SCH ×2 (08:27→20:14)
[2017-11-15] MEDS: TEMPLATE NON-FORMULARY MED. (Dorzolamide Hcl/Timolol Maleat (Dorzolamide-Timolol Eye Drops EACHEYE SCH ×2 (08:29→20:15)
[2017-11-15 13:48] VITALS: BP 120/58
[2017-11-15 19:30] VITALS: BP 112/56
[2017-11-15] MEDS: ATORVASTATIN 40 MG TABLET PO SCH (20:14)
[2017-11-15] MEDS: QUETIAPINE 25MG TABLET PO SCH (20:15)
[2017-11-15] MEDS: TEMPLATE NON-FORMULARY MED. (Bimatoprost (Lumigan) 1 DROP) EACHEYE SCH (20:15)
[2017-11-15] MEDS: HALOPERIDOL 5 MG TABLET PO PRN (22:19)
[2017-11-16] MEDS: ACETAMINOPHEN 325 MG TABLET PO SCH ×5 (00:12→23:55)
[2017-11-16] MEDS: SODIUM CHLORIDE 0.9% 1,000 ML IV SCH ×2 (00:12→23:55)
[2017-11-16 02:00] VITALS: BP 106/66
[2017-11-16] MEDS: CARVEDILOL 3.125 MG TABLET PO SCH ×2 (05:52→17:03)
[2017-11-16] MEDS: ASPIRIN 81 MG TABLET EC PO SCH (05:52)
[2017-11-16 07:36] VITALS: BP 137/64
[2017-11-16] MEDS: ENOXAPARIN 40 MG/0.4 ML SQ SCH (07:50)
[2017-11-16] MEDS: CEFAZOLIN PMX 1GM/50ML 50 ML IV SCH (07:50)
[2017-11-16] MEDS: SENNA/DOCUSATE TABLET PO SCH ×2 (07:53→20:43)
[2017-11-16] MEDS: TEMPLATE NON-FORMULARY MED. (Dorzolamide Hcl/Timolol Maleat (Dorzolamide-Timolol Eye Drops EACHEYE SCH ×2 (07:55→20:45)
[2017-11-16] MEDS: GABAPENTIN 300 MG CAPSULE PO SCH ×3 (07:55→20:43)
[2017-11-16] MEDS: ISOSORBIDE DINITRATE 10 MG TABLET PO SCH ×3 (07:55→20:44)
[2017-11-16] MEDS ORDERED: BISACODYL 10 MG SUPP PR ONE (11:00)
[2017-11-16 15:20] VITALS: BP 123/58
[2017-11-16] MEDS: MUPIROCIN OINT 2%, 22GM TP SCH ×2 (16:00→20:44)
[2017-11-16 18:38] VITALS: BP 125/68
[2017-11-16] MEDS: QUETIAPINE 25MG TABLET PO SCH (20:44)
[2017-11-16] MEDS: ATORVASTATIN 40 MG TABLET PO SCH (20:44)
[2017-11-16] MEDS: TEMPLATE NON-FORMULARY MED. (Bimatoprost (Lumigan) 1 DROP) EACHEYE SCH (20:45)
[2017-11-17 01:50] VITALS: BP 116/52
[2017-11-17] MEDS: ACETAMINOPHEN 325 MG TABLET PO SCH ×3 (05:14→18:20)
[2017-11-17] MEDS: ASPIRIN 81 MG TABLET EC PO SCH (05:14)
[2017-11-17] MEDS: CARVEDILOL 3.125 MG TABLET PO SCH ×2 (05:15→18:20)
[2017-11-17 07:30] VITALS: BP 99/60
[2017-11-17 08:10] LABS: ALBUMIN 2.3 g/dL (3.4-5.0); ANION GAP 6 mmol/L (5-15); CALCIUM 8.3 mg/dL (8.5-10.1); CHLORIDE 109 mmol/L (98-107); CREATININE 0.51 mg/dL (0.7-1.3)
[2017-11-17] MEDS: TEMPLATE NON-FORMULARY MED. (Dorzolamide Hcl/Timolol Maleat (Dorzolamide-Timolol Eye Drops EACHEYE SCH ×2 (09:00→21:00)
[2017-11-17] MEDS: MUPIROCIN OINT 2%, 22GM TP SCH ×3 (09:00→21:00)
[2017-11-17] MEDS: ISOSORBIDE DINITRATE 10 MG TABLET PO SCH ×4 (09:00→21:49)
[2017-11-17] MEDS: ENOXAPARIN 40 MG/0.4 ML SQ SCH (09:00)
[2017-11-17] MEDS: SENNA/DOCUSATE TABLET PO SCH ×2 (09:43→21:49)
[2017-11-17] MEDS: GABAPENTIN 300 MG CAPSULE PO SCH ×3 (09:43→21:50)
[2017-11-17 13:35] VITALS: BP 149/64
[2017-11-17] MEDS: SODIUM CHLORIDE 0.9% 1,000 ML IV SCH (16:40)
[2017-11-17 19:29] VITALS: BP 119/55
[2017-11-17] MEDS: TEMPLATE NON-FORMULARY MED. (Bimatoprost (Lumigan) 1 DROP) EACHEYE SCH (21:00)
[2017-11-17 21:47] VITALS: BP 143/67
[2017-11-17] MEDS: ATORVASTATIN 40 MG TABLET PO SCH (21:49)
[2017-11-17] MEDS: QUETIAPINE 25MG TABLET PO SCH (21:49)
[2017-11-18 01:07] VITALS: BP 132/78
[2017-11-18] MEDS: ASPIRIN 81 MG TABLET EC PO SCH (06:00)
[2017-11-18] MEDS: ACETAMINOPHEN 325 MG TABLET PO SCH ×4 (06:24→18:00)
[2017-11-18] MEDS: CARVEDILOL 3.125 MG TABLET PO SCH ×2 (06:25→18:00)
[2017-11-18 06:56] LABS: BASOPHILS # (AUTO) 0.02 x10^3/uL (0-0.1); BASOPHILS % (AUTO) 0 % (0-1); EOSINOPHILS # (AUTO) 0.38 x10^3/uL (0-0.4); EOSINOPHILS % (AUTO) 5 % (1-7); LYMPHOCYTES # (AUTO) 0.98 x10^3/uL (1-3.4); LYMPHOCYTES % (AUTO) 12 % (22-44); MD NO; MEAN CORPUSCULAR HGB CONC 32.3 g/dL (33.2-36.2); MEAN CORPUSCULAR VOLUME 86.7 fL (81-97); MEAN PLATELET VOLUME 7.7 fL (7.4-10.4); MONOCYTES # (AUTO) 0.75 x10^3/uL (0.2-0.8); MONOCYTES % (AUTO) 9 % (2-9); NEUTROPHILS # (AUTO) 5.79 x10^3/uL (1.8-6.8); NEUTROPHILS % (AUTO) 73 % (42-75); PLATELET COUNT 447 x10^3/uL (130-400); RED BLOOD COUNT 4.16 x10^6/uL (4.38-5.82); RED CELL DISTRIBUTION WIDTH 15.2 % (9.4-14.8)
[2017-11-18 06:59] LABS: INTERNATIONAL NORMALIZED RATIO 1.19 (0.93-1.1); PROTHROMBIN TIME 12.2 Seconds (9.6-11.5)
[2017-11-18 07:00] LABS: ALBUMIN 2.4 g/dL (3.4-5.0); ANION GAP 5 mmol/L (5-15); CALCIUM 8.3 mg/dL (8.5-10.1); CHLORIDE 109 mmol/L (98-107); CREATININE 0.49 mg/dL (0.7-1.3)
[2017-11-18 07:45] VITALS: BP 122/57
[2017-11-18] MEDS: MUPIROCIN OINT 2%, 22GM TP SCH ×3 (08:56→21:00)
[2017-11-18] MEDS: ENOXAPARIN 40 MG/0.4 ML SQ SCH (08:56)
[2017-11-18] MEDS: SENNA/DOCUSATE TABLET PO SCH ×2 (08:56→21:00)
[2017-11-18] MEDS: ISOSORBIDE DINITRATE 10 MG TABLET PO SCH ×3 (08:56→21:29)
[2017-11-18] MEDS: GABAPENTIN 300 MG CAPSULE PO SCH ×3 (08:56→21:29)
[2017-11-18] MEDS: TEMPLATE NON-FORMULARY MED. (Dorzolamide Hcl/Timolol Maleat (Dorzolamide-Timolol Eye Drops EACHEYE SCH ×2 (09:00→21:00)
[2017-11-18 13:36] VITALS: BP 130/75
[2017-11-18] MEDS ORDERED: SUCCINYLCHOLINE 20 MG/ML, 10ML ONE (15:30)
[2017-11-18] MEDS ORDERED: DEXAMETHASONE 4 MG/ML, 1ML ONE (15:30)
[2017-11-18] MEDS ORDERED: PROPOFOL 10 MG/ML, 20ML ONE (15:30)
[2017-11-18] MEDS ORDERED: CEFAZOLIN 1,000 MG ONE (15:30)
[2017-11-18] MEDS ORDERED: FENTANYL PF 100 MCG/2ML ONE ×3 (15:33→17:21)
[2017-11-18] MEDS ORDERED: FENTANYL PF 250 MCG/5ML ONE (15:52)
[2017-11-18] MEDS: SODIUM CHLORIDE 0.9% 1,000 ML IV SCH ×2 (16:00→21:28)
[2017-11-18] MEDS ORDERED: ACETAMINOPHEN 325 MG TABLET PO PRN (16:30)
[2017-11-18] MEDS ORDERED: PROMETHAZINE 12.5 MG SUPP PR PRN (16:30)
[2017-11-18] MEDS ORDERED: LABETALOL 5MG/ML, 20ML IV PRN (16:30)
[2017-11-18] MEDS ORDERED: OXYcodone 5 MG/5 ML ORAL.SOL UDC PO PRN (16:30)
[2017-11-18] MEDS ORDERED: MEPERIDINE/PF 25MG/0.5ML IVPush PRN (16:30)
[2017-11-18] MEDS ORDERED: MIDAZOLAM 1 MG/ML, 2ML IV PRN (16:30)
[2017-11-18] MEDS ORDERED: ONDANSETRON ODT 8 MG PO PRN (16:30)
[2017-11-18] MEDS ORDERED: PROMETHAZINE 25 MG/ML, 1ML IV PRN (16:30)
[2017-11-18] MEDS ORDERED: ALBUTEROL SULFATE 2.5 MG/3 ML NPPB PRN (16:30)
[2017-11-18] MEDS: hydrALAzine 20 MG/ML, 1ML IV PRN ×2 (16:34→17:33)
[2017-11-18] MEDS ORDERED: LABETALOL 5MG/ML, 20ML ONE (16:43)
[2017-11-18] MEDS: FENTANYL PF 100 MCG/2ML IV PRN ×4 (16:45→17:30)
[2017-11-18] MEDS ORDERED: MORPHINE SULFATE 4 MG/ML, 1ML ONE (16:56)
[2017-11-18] MEDS: MORPHINE SULFATE 4 MG/ML, 1ML IVPush PRN ×4 (17:03→17:52)
[2017-11-18] MEDS ORDERED: HALOPERIDOL 5 MG/ML ONE (17:16)
[2017-11-18] MEDS ORDERED: morphine SULFATE 10 MG/ML, 1ML ONE (17:21)
[2017-11-18] MEDS ORDERED: OXYcodone 5 MG/5 ML ORAL.SOL UDC ONE (17:21)
[2017-11-18] MEDS ORDERED: HALOPERIDOL 5 MG/ML IV ONE (18:00)
[2017-11-18 18:30] VITALS: BP 134/67
[2017-11-18] MEDS ORDERED: MORPHINE SULFATE 4 MG/ML, 1ML IV PRN (20:00)
[2017-11-18] MEDS: TEMPLATE NON-FORMULARY MED. (Bimatoprost (Lumigan) 1 DROP) EACHEYE SCH (21:00)
[2017-11-18 21:25] VITALS: BP 116/64
[2017-11-18] MEDS: CEFAZOLIN PMX 2GM/50ML 50 ML IVPB SCH (21:27)
[2017-11-18] MEDS: ATORVASTATIN 40 MG TABLET PO SCH (21:28)
[2017-11-18] MEDS: QUETIAPINE 25MG TABLET PO SCH (21:29)
[2017-11-19 01:55] VITALS: BP 135/63
[2017-11-19 05:39] VITALS: BP 144/66
[2017-11-19] MEDS: ACETAMINOPHEN 325 MG TABLET PO SCH ×5 (05:48→23:37)
[2017-11-19] MEDS: CARVEDILOL 3.125 MG TABLET PO SCH ×2 (05:48→17:59)
[2017-11-19] MEDS: CEFAZOLIN PMX 2GM/50ML 50 ML IVPB SCH ×2 (05:49→14:36)
[2017-11-19] MEDS: ASPIRIN 81 MG TABLET EC PO SCH (05:49)
[2017-11-19 06:00] LABS: BASOPHILS # (AUTO) 0.02 x10^3/uL (0-0.1); BASOPHILS % (AUTO) 0 % (0-1); EOSINOPHILS # (AUTO) 0.26 x10^3/uL (0-0.4); EOSINOPHILS % (AUTO) 2 % (1-7); LYMPHOCYTES # (AUTO) 1.08 x10^3/uL (1-3.4); LYMPHOCYTES % (AUTO) 10 % (22-44); MD NO; MEAN CORPUSCULAR HEMOGLOBIN 28.1 pg (27.5-34.5); MEAN CORPUSCULAR HGB CONC 32.2 g/dL (33.2-36.2); MEAN CORPUSCULAR VOLUME 87.3 fL (81-97); MEAN PLATELET VOLUME 7.6 fL (7.4-10.4); MONOCYTES # (AUTO) 0.94 x10^3/uL (0.2-0.8); MONOCYTES % (AUTO) 9 % (2-9); NEUTROPHILS # (AUTO) 8.68 x10^3/uL (1.8-6.8); NEUTROPHILS % (AUTO) 79 % (42-75); PLATELET COUNT 466 x10^3/uL (130-400); RED BLOOD COUNT 4.03 x10^6/uL (4.38-5.82); RED CELL DISTRIBUTION WIDTH 15.3 % (9.4-14.8)
[2017-11-19 06:03] LABS: ALBUMIN 2.2 g/dL (3.4-5.0); ANION GAP 10 mmol/L (5-15); CALCIUM 8.2 mg/dL (8.5-10.1); CHLORIDE 107 mmol/L (98-107); CREATININE 0.36 mg/dL (0.7-1.3)
[2017-11-19 07:00] VITALS: BP 147/63
[2017-11-19] MEDS ORDERED: POTASSIUM CHLORIDE 20 MEQ TAB.ER.PRT PO ONE (07:00)
[2017-11-19] MEDS: ISOSORBIDE DINITRATE 10 MG TABLET PO SCH ×2 (09:47→17:59)
[2017-11-19] MEDS: GABAPENTIN 300 MG CAPSULE PO SCH ×3 (09:47→21:50)
[2017-11-19] MEDS: ENOXAPARIN 40 MG/0.4 ML SQ SCH (09:47)
[2017-11-19] MEDS: SENNA/DOCUSATE TABLET PO SCH ×2 (09:48→21:50)
[2017-11-19] MEDS: TEMPLATE NON-FORMULARY MED. (Dorzolamide Hcl/Timolol Maleat (Dorzolamide-Timolol Eye Drops EACHEYE SCH ×2 (09:53→21:51)
[2017-11-19 12:13] VITALS: BP 144/88
[2017-11-19 12:16] VITALS: BP 126/62
[2017-11-19] MEDS: HYDROcodone/APAP 5/325 TABLET PO PRN (12:20)
[2017-11-19 18:51] VITALS: BP 124/57
[2017-11-19] MEDS: ATORVASTATIN 40 MG TABLET PO SCH (21:50)
[2017-11-19] MEDS: TEMPLATE NON-FORMULARY MED. (Bimatoprost (Lumigan) 1 DROP) EACHEYE SCH (21:51)
[2017-11-19] MEDS: QUETIAPINE 25MG TABLET PO SCH (21:51)
[2017-11-20 01:19] VITALS: BP 142/65
[2017-11-20] MEDS: ISOSORBIDE DINITRATE 10 MG TABLET PO SCH ×4 (02:27→20:37)
[2017-11-20 05:47] LABS: BASOPHILS # (AUTO) 0.01 x10^3/uL (0-0.1); BASOPHILS % (AUTO) 0 % (0-1); EOSINOPHILS % (AUTO) 2 % (1-7); LYMPHOCYTES # (AUTO) 1.04 x10^3/uL (1-3.4); LYMPHOCYTES % (AUTO) 10 % (22-44); MD NO; MEAN CORPUSCULAR HEMOGLOBIN 27.7 pg (27.5-34.5); MEAN CORPUSCULAR HGB CONC 32.1 g/dL (33.2-36.2); MEAN CORPUSCULAR VOLUME 86.2 fL (81-97); MEAN PLATELET VOLUME 7.8 fL (7.4-10.4); MONOCYTES # (AUTO) 1.19 x10^3/uL (0.2-0.8); MONOCYTES % (AUTO) 11 % (2-9); NEUTROPHILS # (AUTO) 8.35 x10^3/uL (1.8-6.8); NEUTROPHILS % (AUTO) 77 % (42-75); PLATELET COUNT 425 x10^3/uL (130-400); RED CELL DISTRIBUTION WIDTH 15.6 % (9.4-14.8)
[2017-11-20 06:00] LABS: ALBUMIN 2.1 g/dL (3.4-5.0); ANION GAP 7 mmol/L (5-15); CALCIUM 8.2 mg/dL (8.5-10.1); CHLORIDE 105 mmol/L (98-107)
[2017-11-20 06:05] LABS: % IRON SATURATION 6 % (20-55); CREATININE 0.38 mg/dL (0.7-1.3); IRON LEVEL 10 mcg/dL (65-175); TOTAL IRON BINDING CAPACITY 173 mcg/dL (250-450)
[2017-11-20 06:14] VITALS: BP 116/57
[2017-11-20] MEDS: CARVEDILOL 3.125 MG TABLET PO SCH ×2 (06:17→17:16)
[2017-11-20] MEDS: ASPIRIN 81 MG TABLET EC PO SCH (06:17)
[2017-11-20] MEDS: ACETAMINOPHEN 325 MG TABLET PO SCH ×3 (06:17→17:15)
[2017-11-20] MEDS: SODIUM CHLORIDE 0.9% 1,000 ML IV SCH (06:38)
[2017-11-20] MEDS: TEMPLATE NON-FORMULARY MED. (Dorzolamide Hcl/Timolol Maleat (Dorzolamide-Timolol Eye Drops EACHEYE SCH ×2 (09:00→20:38)
[2017-11-20] MEDS: SENNA/DOCUSATE TABLET PO SCH ×2 (09:44→20:37)
[2017-11-20] MEDS: GABAPENTIN 300 MG CAPSULE PO SCH ×3 (09:45→20:38)
[2017-11-20] MEDS: ENOXAPARIN 40 MG/0.4 ML SQ SCH (09:45)
[2017-11-20 12:20] VITALS: BP 121/61
[2017-11-20] MEDS: FERROUS SULFATE 325 MG TABLET PO SCH (17:16)
[2017-11-20 19:36] VITALS: BP 103/51
[2017-11-20] MEDS: QUETIAPINE 25MG TABLET PO SCH (20:38)
[2017-11-20] MEDS: ATORVASTATIN 40 MG TABLET PO SCH (20:38)
[2017-11-20] MEDS: TEMPLATE NON-FORMULARY MED. (Bimatoprost (Lumigan) 1 DROP) EACHEYE SCH (20:38)
[2017-11-21] MEDS: ACETAMINOPHEN 325 MG TABLET PO SCH ×4 (00:15→17:28)
[2017-11-21] MEDS: SODIUM CHLORIDE 0.9% 1,000 ML IV SCH (00:15)
[2017-11-21 05:19] LABS: BASOPHILS % (AUTO) 0 % (0-1); EOSINOPHILS # (AUTO) 0.13 x10^3/uL (0-0.4); EOSINOPHILS % (AUTO) 2 % (1-7); LYMPHOCYTES # (AUTO) 1.05 x10^3/uL (1-3.4); LYMPHOCYTES % (AUTO) 12 % (22-44); MD NO; MEAN CORPUSCULAR HEMOGLOBIN 28.1 pg (27.5-34.5); MEAN CORPUSCULAR HGB CONC 32.5 g/dL (33.2-36.2); MEAN CORPUSCULAR VOLUME 86.6 fL (81-97); MONOCYTES # (AUTO) 0.96 x10^3/uL (0.2-0.8); MONOCYTES % (AUTO) 11 % (2-9); NEUTROPHILS # (AUTO) 6.63 x10^3/uL (1.8-6.8); NEUTROPHILS % (AUTO) 76 % (42-75); PLATELET COUNT 407 x10^3/uL (130-400); RED CELL DISTRIBUTION WIDTH 15.9 % (9.4-14.8)
[2017-11-21 05:24] LABS: ANION GAP 8 mmol/L (5-15); CALCIUM 8.2 mg/dL (8.5-10.1); CHLORIDE 107 mmol/L (98-107); CREATININE 0.36 mg/dL (0.7-1.3)
[2017-11-21] MEDS: ASPIRIN 81 MG TABLET EC PO SCH (05:28)
[2017-11-21] MEDS: CARVEDILOL 3.125 MG TABLET PO SCH ×2 (05:29→17:28)
[2017-11-21] MEDS ORDERED: POTASSIUM CHLORIDE 20 MEQ TAB.ER.PRT PO ONE (06:30)
[2017-11-21 07:55] VITALS: BP 136/78
[2017-11-21] MEDS: ENOXAPARIN 40 MG/0.4 ML SQ SCH (09:29)
[2017-11-21] MEDS: SENNA/DOCUSATE TABLET PO SCH ×2 (09:30→20:25)
[2017-11-21] MEDS: ISOSORBIDE DINITRATE 10 MG TABLET PO SCH ×3 (09:30→20:25)
[2017-11-21] MEDS: GABAPENTIN 300 MG CAPSULE PO SCH ×3 (09:30→20:25)
[2017-11-21] MEDS: FERROUS SULFATE 325 MG TABLET PO SCH ×2 (09:31→15:47)
[2017-11-21] MEDS: TEMPLATE NON-FORMULARY MED. (Dorzolamide Hcl/Timolol Maleat (Dorzolamide-Timolol Eye Drops EACHEYE SCH ×2 (09:32→20:26)
[2017-11-21 14:30] VITALS: BP 126/64
[2017-11-21] MEDS: MULTIVITAMIN 1 TABLET PO SCH (15:47)
[2017-11-21 20:05] VITALS: BP 134/65
[2017-11-21] MEDS: ATORVASTATIN 40 MG TABLET PO SCH (20:25)
[2017-11-21] MEDS: QUETIAPINE 25MG TABLET PO SCH (20:25)
[2017-11-21] MEDS: TEMPLATE NON-FORMULARY MED. (Bimatoprost (Lumigan) 1 DROP) EACHEYE SCH (20:25)
[2017-11-21] MEDS ORDERED: TEMPLATE NON-FORMULARY MED. (Rivaroxaban** (Xarelto**) 20 MG) PO SCH (21:00)
[2017-11-22 00:53] VITALS: BP 132/76
[2017-11-22 05:16] LABS: ANION GAP 7 mmol/L (5-15); BASOPHILS # (AUTO) 0.02 x10^3/uL (0-0.1); BASOPHILS % (AUTO) 0 % (0-1); CALCIUM 8.1 mg/dL (8.5-10.1); CHLORIDE 109 mmol/L (98-107); CREATININE 0.35 mg/dL (0.7-1.3); EOSINOPHILS # (AUTO) 0.12 x10^3/uL (0-0.4); EOSINOPHILS % (AUTO) 2 % (1-7); LYMPHOCYTES # (AUTO) 1.27 x10^3/uL (1-3.4); LYMPHOCYTES % (AUTO) 19 % (22-44); MD NO; MEAN CORPUSCULAR HEMOGLOBIN 27.7 pg (27.5-34.5); MEAN CORPUSCULAR HGB CONC 32.3 g/dL (33.2-36.2); MEAN CORPUSCULAR VOLUME 85.9 fL (81-97); MEAN PLATELET VOLUME 8.2 fL (7.4-10.4); MONOCYTES % (AUTO) 10 % (2-9); NEUTROPHILS # (AUTO) 4.71 x10^3/uL (1.8-6.8); NEUTROPHILS % (AUTO) 69 % (42-75); PLATELET COUNT 385 x10^3/uL (130-400); RED BLOOD COUNT 3.86 x10^6/uL (4.38-5.82); RED CELL DISTRIBUTION WIDTH 15.6 % (9.4-14.8)
[2017-11-22] MEDS: CARVEDILOL 3.125 MG TABLET PO SCH ×2 (06:18→17:03)
[2017-11-22] MEDS: ACETAMINOPHEN 325 MG TABLET PO SCH ×4 (06:18→17:03)
[2017-11-22] MEDS: ASPIRIN 81 MG TABLET EC PO SCH (06:18)
[2017-11-22 07:50] VITALS: BP 107/64
[2017-11-22] MEDS: SENNA/DOCUSATE TABLET PO SCH ×2 (08:51→20:56)
[2017-11-22] MEDS: TEMPLATE NON-FORMULARY MED. (Dorzolamide Hcl/Timolol Maleat (Dorzolamide-Timolol Eye Drops EACHEYE SCH ×2 (09:00→20:57)
[2017-11-22] MEDS: FERROUS SULFATE 325 MG TABLET PO SCH ×2 (09:36→17:02)
[2017-11-22] MEDS: MULTIVITAMIN 1 TABLET PO SCH (09:36)
[2017-11-22] MEDS: ISOSORBIDE DINITRATE 10 MG TABLET PO SCH ×3 (09:36→20:56)
[2017-11-22] MEDS: GABAPENTIN 300 MG CAPSULE PO SCH ×3 (09:36→20:56)
[2017-11-22 12:03] VITALS: BP 135/62
[2017-11-22 19:35] VITALS: BP 113/53
[2017-11-22] MEDS: ATORVASTATIN 40 MG TABLET PO SCH (20:55)
[2017-11-22] MEDS: TEMPLATE NON-FORMULARY MED. (Bimatoprost (Lumigan) 1 DROP) EACHEYE SCH (20:56)
[2017-11-22] MEDS: QUETIAPINE 25MG TABLET PO SCH (20:56)
[2017-11-22] MEDS: RIVAROXABAN 20 MG TABLET PO SCH (20:56)
[2017-11-23 00:52] VITALS: BP 88/46
[2017-11-23] MEDS: CARVEDILOL 3.125 MG TABLET PO SCH ×2 (05:45→18:24)
[2017-11-23] MEDS: ACETAMINOPHEN 325 MG TABLET PO SCH ×3 (05:45→12:58)
[2017-11-23] MEDS: ASPIRIN 81 MG TABLET EC PO SCH (05:45)
[2017-11-23 06:38] VITALS: BP 125/66
[2017-11-23] MEDS: FERROUS SULFATE 325 MG TABLET PO SCH ×2 (08:57→18:25)
[2017-11-23] MEDS: GABAPENTIN 300 MG CAPSULE PO SCH ×4 (08:57→21:00)
[2017-11-23] MEDS: MULTIVITAMIN 1 TABLET PO SCH (08:57)
[2017-11-23] MEDS: HYDROcodone/APAP 5/325 TABLET PO PRN (08:57)
[2017-11-23] MEDS: ISOSORBIDE DINITRATE 10 MG TABLET PO SCH ×4 (08:58→21:00)
[2017-11-23] MEDS: SENNA/DOCUSATE TABLET PO SCH ×3 (08:59→21:00)
[2017-11-23] MEDS: TEMPLATE NON-FORMULARY MED. (Dorzolamide Hcl/Timolol Maleat (Dorzolamide-Timolol Eye Drops EACHEYE SCH ×2 (08:59→21:00)
[2017-11-23] MEDS: POTASSIUM CHLORIDE 20 MEQ TAB.ER.PRT PO SCH ×2 (09:18→12:30)
[2017-11-23 09:39] LABS: ANION GAP 8 mmol/L (5-15); CALCIUM 8.4 mg/dL (8.5-10.1); CHLORIDE 106 mmol/L (98-107)
[2017-11-23 14:12] VITALS: BP 127/69
[2017-11-23 18:23] VITALS: BP 130/74
[2017-11-23] MEDS ORDERED: ACETAMINOPHEN 325 MG TABLET PO PRN (18:30)
[2017-11-23] MEDS: RIVAROXABAN 20 MG TABLET PO SCH ×2 (20:46→21:00)
[2017-11-23] MEDS: QUETIAPINE 25MG TABLET PO SCH ×2 (20:46→21:00)
[2017-11-23] MEDS: ATORVASTATIN 40 MG TABLET PO SCH ×2 (20:46→21:00)
[2017-11-23] MEDS: TEMPLATE NON-FORMULARY MED. (Bimatoprost (Lumigan) 1 DROP) EACHEYE SCH (21:00)
[2017-11-24 02:36] VITALS: BP 146/66
[2017-11-24] MEDS: ASPIRIN 81 MG TABLET EC PO SCH (05:30)
[2017-11-24] MEDS: CARVEDILOL 3.125 MG TABLET PO SCH (05:31)
[2017-11-24 05:32] VITALS: BP 150/80
[2017-11-24 05:51] LABS: ANION GAP 5 mmol/L (5-15); CALCIUM 9.2 mg/dL (8.5-10.1); CHLORIDE 103 mmol/L (98-107); CREATININE 0.58 mg/dL (0.7-1.3)
[2017-11-24 06:34] VITALS: BP 112/69
[2017-11-24] MEDS: SENNA/DOCUSATE TABLET PO SCH (09:00)
[2017-11-24] MEDS: TEMPLATE NON-FORMULARY MED. (Dorzolamide Hcl/Timolol Maleat (Dorzolamide-Timolol Eye Drops EACHEYE SCH (09:00)
[2017-11-24] MEDS ORDERED: ASPI-621 PO (09:05)
[2017-11-24] MEDS ORDERED: FERR-51 PO (09:05)
[2017-11-24] MEDS ORDERED: CARV3.1212 PO (09:05)
[2017-11-24] MEDS ORDERED: ISOS10TA2 PO (09:05)
[2017-11-24] MEDS ORDERED: GABA300C10 PO (09:05)
[2017-11-24] MEDS ORDERED: ACET325T14 PO (09:05)
[2017-11-24] MEDS ORDERED: QUET25TA PO (09:06)
[2017-11-24] MEDS ORDERED: ONDA4TAB13 PO (09:06)
[2017-11-24] MEDS ORDERED: MULT1TAB60 PO (09:06)
[2017-11-24] MEDS: MULTIVITAMIN 1 TABLET PO SCH (09:36)
[2017-11-24] MEDS: GABAPENTIN 300 MG CAPSULE PO SCH (09:36)
[2017-11-24] MEDS: FERROUS SULFATE 325 MG TABLET PO SCH (09:36)
[2017-11-24] MEDS: ISOSORBIDE DINITRATE 10 MG TABLET PO SCH (09:36)
[2017-11-24 12:48] VITALS: BP 122/65
== END 2017-11-24 15:09 | DRG 239 ==
LOC: ED 16:48 → EDIP 17:32 → 3NW 18:03 → 4NOR 10-31 13:33 → 4WST 11-14 09:47 → 4EST 11-23 14:31
PROVIDERS: ADMIT Internal Medicine; ATTEND Hospitalist
PROC: 0Y6J0Z1 Detachment at Left Lower Leg, High, Open Approach (ICD-10-PCS; 2017-10-31)
PROC: 0Y6D0Z3 Detachment at Left Upper Leg, Low, Open Approach (ICD-10-PCS; principal; 2017-11-18 14:30)
DX: I77.1 Stricture of artery (principal); G93.40 Encephalopathy, unspecified; L03.116 Cellulitis of left lower limb; D68.69 Other thrombophilia; E87.1 Hypo-osmolality and hyponatremia; F10.231 Alcohol dependence with withdrawal delirium; L97.929 Non-pressure chronic ulcer of unspecified part of left lower leg with unspecified severity; T87.43 Infection of amputation stump, right lower extremity; I73.9 Peripheral vascular disease, unspecified; E74.39 Other disorders of intestinal carbohydrate absorption; R73.9 Hyperglycemia, unspecified; I10 Essential (primary) hypertension; D50.9 Iron deficiency anemia, unspecified; E78.5 Hyperlipidemia, unspecified; E87.6 Hypokalemia; F41.9 Anxiety disorder, unspecified; G54.6 Phantom limb syndrome with pain; I25.10 Atherosclerotic heart disease of native coronary artery without angina pectoris; I99.8 Other disorder of circulatory system; I71.4 Abdominal aortic aneurysm, without rupture; J44.9 Chronic obstructive pulmonary disease, unspecified; K59.00 Constipation, unspecified; L97.509 Non-pressure chronic ulcer of other part of unspecified foot with unspecified severity; M19.079 Primary osteoarthritis, unspecified ankle and foot; T87.89 Other complications of amputation stump; Y83.5 Amputation of limb(s) as the cause of abnormal reaction of the patient, or of later complication, without mention of misadventure at the time of the procedure; Z79.01 Long term (current) use of anticoagulants; T87.81 Dehiscence of amputation stump; Z82.49 Family history of ischemic heart disease and other diseases of the circulatory system; Z86.711 Personal history of pulmonary embolism; Z86.73 Personal history of transient ischemic attack (TIA), and cerebral infarction without residual deficits; Z86.79 Personal history of other diseases of the circulatory system; Z87.891 Personal history of nicotine dependence; Z89.431 Acquired absence of right foot; Z89.511 Acquired absence of right leg below knee
CPT/HCPCS: 36415; 70450; 80048; 80053; 80202; 82040; 82140; 82728; 83540; 83550; 83605; 83735; 84100; 85025; 85610; 85651; 85730; 86140; 88307; 93005; 93925; 96365; 96367; J0295; J0690; J1100; J1650; J2250; J2405; J2704; J3010; J3370; J3411; J3475; J3480; J0330; J0360; J1630; J2060; J7030; J7050; J7121

== ENCOUNTER 2017-12-01 11:41 | Inpatient (IN) | payer MEDICARE, MEDICAID ==
[~2017-12-01] VITALS: Ht 162.6 cm; Wt 57.9 kg
[~2017-12-01 11:41] MED LIST changes: +ASPI-621 PO; +CARV3.1212 PO; +FERR-51 PO; +HYDR2TAB40 PO; +ISOS10TA2 PO; +MULT1TAB60 PO; +MUPI22OI2 HOMETP; +ONDA4TAB13 PO; +QUET25TA PO
[2017-12-01] MEDS ORDERED: SODIUM CHLORIDE 0.9% 1,000ML IVBOLUS ONE ×2 (12:30→20:30)
[2017-12-01] MEDS ORDERED: SODIUM CHLORIDE FLUSH 10ML SYR IVF ONE (12:30)
[2017-12-01 12:44] LABS: BASOPHILS # (AUTO) 0.02 x10^3/uL (0-0.1); BASOPHILS % (AUTO) 0 % (0-1); EOSINOPHILS # (AUTO) 0.14 x10^3/uL (0-0.4); EOSINOPHILS % (AUTO) 1 % (1-7); LYMPHOCYTES # (AUTO) 1.78 x10^3/uL (1-3.4); LYMPHOCYTES % (AUTO) 14 % (22-44); MD NO; MEAN CORPUSCULAR HEMOGLOBIN 28.2 pg (27.5-34.5); MEAN CORPUSCULAR HGB CONC 32.6 g/dL (33.2-36.2); MEAN CORPUSCULAR VOLUME 86.5 fL (81-97); MEAN PLATELET VOLUME 8.3 fL (7.4-10.4); MONOCYTES # (AUTO) 1.25 x10^3/uL (0.2-0.8); MONOCYTES % (AUTO) 10 % (2-9); NEUTROPHILS # (AUTO) 9.72 x10^3/uL (1.8-6.8); NEUTROPHILS % (AUTO) 75 % (42-75); PLATELET COUNT 349 x10^3/uL (130-400); RED BLOOD COUNT 4.68 x10^6/uL (4.38-5.82); RED CELL DISTRIBUTION WIDTH 17.1 % (9.4-14.8)
[2017-12-01 12:55] LABS: ALANINE AMINOTRANSFERASE 23 U/L (12-78); ALBUMIN 3.3 g/dL (3.4-5.0); ANION GAP 9 mmol/L (5-15); CALCIUM 8.7 mg/dL (8.5-10.1); CHLORIDE 103 mmol/L (98-107); CREATININE 0.67 mg/dL (0.7-1.3)
[2017-12-01 13:00] LABS: ALKALINE PHOSPHATASE 87 U/L (45-117); BILIRUBIN,TOTAL 0.8 mg/dL (0.2-1.0); TOTAL PROTEIN 7.3 g/dL (6.4-8.2); TROPONIN I < 0.015 ng/mL (0.000-0.045)
[2017-12-01 14:04] LABS: MICROSCOPIC NOT IND
[2017-12-01 14:39] LABS: CULTURE INDICATED? NO
[2017-12-01 17:15] VITALS: BP 99/60
[2017-12-01] MEDS ORDERED: ONDANSETRON 4 MG TABLET PO PRN (17:30)
[2017-12-01] MEDS ORDERED: ACETAMINOPHEN 325 MG TABLET PO PRN (17:30)
[2017-12-01] MEDS ORDERED: ENALAPRILAT 1.25 MG/ML, 2ML IVPush PRN (18:00)
[2017-12-01] MEDS ORDERED: ONDANSETRON ODT 4 MG PO PRN (18:00)
[2017-12-01] MEDS ORDERED: hydrALAzine 20 MG/ML, 1ML IVPush PRN (18:00)
[2017-12-01 18:11] VITALS: BP 118/67
[2017-12-01] MEDS: FERROUS SULFATE 325 MG TABLET PO SCH ×2 (18:12→21:44)
[2017-12-01] MEDS: CARVEDILOL 3.125 MG TABLET PO SCH (18:12)
[2017-12-01] MEDS: ISOSORBIDE DINITRATE 10 MG TABLET PO SCH ×2 (18:13→21:00)
[2017-12-01] MEDS: GABAPENTIN 300 MG CAPSULE PO SCH ×2 (18:13→21:44)
[2017-12-01 19:55] VITALS: BP 73/38
[2017-12-01] MEDS: (Dorzolamide Hcl/Timolol Maleat (Dorzolamide-Timolol Eye Drops EACHEYE SCH (21:00)
[2017-12-01] MEDS: QUETIAPINE 25MG TABLET PO SCH (21:00)
[2017-12-01] MEDS: RIVAROXABAN 20 MG TABLET PO SCH (21:44)
[2017-12-01] MEDS: ATORVASTATIN 40 MG TABLET PO SCH (21:44)
[2017-12-01 22:15] VITALS: BP 103/52
[2017-12-02 01:46] VITALS: BP 92/51
[2017-12-02 03:35] VITALS: BP 119/65
[2017-12-02 05:47] LABS: BASOPHILS # (AUTO) 0.03 x10^3/uL (0-0.1); BASOPHILS % (AUTO) 1 % (0-1); EOSINOPHILS # (AUTO) 0.17 x10^3/uL (0-0.4); EOSINOPHILS % (AUTO) 3 % (1-7); LYMPHOCYTES # (AUTO) 1.36 x10^3/uL (1-3.4); LYMPHOCYTES % (AUTO) 24 % (22-44); MD NO; MEAN CORPUSCULAR HEMOGLOBIN 28.1 pg (27.5-34.5); MEAN CORPUSCULAR HGB CONC 32.7 g/dL (33.2-36.2); MEAN CORPUSCULAR VOLUME 85.8 fL (81-97); MEAN PLATELET VOLUME 8.4 fL (7.4-10.4); MONOCYTES # (AUTO) 0.62 x10^3/uL (0.2-0.8); MONOCYTES % (AUTO) 11 % (2-9); NEUTROPHILS # (AUTO) 3.44 x10^3/uL (1.8-6.8); NEUTROPHILS % (AUTO) 61 % (42-75); PLATELET COUNT 231 x10^3/uL (130-400); RED CELL DISTRIBUTION WIDTH 17.2 % (9.4-14.8)
[2017-12-02 05:54] LABS: ANION GAP 7 mmol/L (5-15); CALCIUM 8.1 mg/dL (8.5-10.1); CHLORIDE 111 mmol/L (98-107); CREATININE 0.46 mg/dL (0.7-1.3)
[2017-12-02] MEDS: CARVEDILOL 3.125 MG TABLET PO SCH ×2 (06:00→18:03)
[2017-12-02 06:04] LABS: THYROID STIMULATING HORMONE 0.464 mIU/L (0.358-3.740)
[2017-12-02] MEDS: ASPIRIN 81 MG TABLET EC PO SCH (06:06)
[2017-12-02 06:27] LABS: MICROSCOPIC NOT IND
[2017-12-02 06:32] LABS: CULTURE INDICATED? NO
[2017-12-02] MEDS: ISOSORBIDE DINITRATE 10 MG TABLET PO SCH (08:17)
[2017-12-02 08:25] VITALS: BP 101/56
[2017-12-02] MEDS: SPIRONOLACTONE 25 MG TABLET PO SCH (08:42)
[2017-12-02] MEDS: GABAPENTIN 300 MG CAPSULE PO SCH ×3 (08:42→20:58)
[2017-12-02] MEDS: MULTIVITAMIN 1 TABLET PO SCH (08:42)
[2017-12-02] MEDS: FERROUS SULFATE 325 MG TABLET PO SCH ×3 (08:42→20:58)
[2017-12-02] MEDS: (Dorzolamide Hcl/Timolol Maleat (Dorzolamide-Timolol Eye Drops EACHEYE SCH ×2 (09:11→21:00)
[2017-12-02] MEDS: DOCUSATE 100 MG CAPSULE PO SCH ×2 (10:25→20:58)
[2017-12-02] MEDS ORDERED: POLYETHYLENE GLYCOL 17 GM PACKET NG ONE (10:30)
[2017-12-02 14:09] VITALS: BP 106/67
[2017-12-02] MEDS ORDERED: POLYETHYLENE GLYCOL 17 GM PACKET PO ONE (18:00)
[2017-12-02 18:02] VITALS: BP 110/67
[2017-12-02 19:08] VITALS: BP 115/68
[2017-12-02] MEDS: ATORVASTATIN 40 MG TABLET PO SCH (20:58)
[2017-12-02] MEDS: QUETIAPINE 25MG TABLET PO SCH (20:58)
[2017-12-02] MEDS: RIVAROXABAN 20 MG TABLET PO SCH (20:58)
[2017-12-03 01:46] VITALS: BP 123/69
[2017-12-03] MEDS: ASPIRIN 81 MG TABLET EC PO SCH (06:38)
[2017-12-03] MEDS: CARVEDILOL 3.125 MG TABLET PO SCH (06:38)
[2017-12-03 08:25] VITALS: BP 123/72
[2017-12-03] MEDS: (Dorzolamide Hcl/Timolol Maleat (Dorzolamide-Timolol Eye Drops EACHEYE SCH (09:00)
[2017-12-03] MEDS: GABAPENTIN 300 MG CAPSULE PO SCH (09:00)
[2017-12-03] MEDS: SPIRONOLACTONE 25 MG TABLET PO SCH (09:00)
[2017-12-03] MEDS: DOCUSATE 100 MG CAPSULE PO SCH (09:00)
[2017-12-03] MEDS: FERROUS SULFATE 325 MG TABLET PO SCH (09:56)
[2017-12-03] MEDS: MULTIVITAMIN 1 TABLET PO SCH (09:57)
== END 2017-12-03 15:21 | DRG 641 ==
LOC: ED 14:59 → EDIP 15:51 → 3NE 17:09
PROVIDERS: ADMIT Hospitalist; ATTEND Hospitalist
DX: R62.7 Adult failure to thrive (principal); D68.59 Other primary thrombophilia; F10.239 Alcohol dependence with withdrawal, unspecified; D50.9 Iron deficiency anemia, unspecified; F41.9 Anxiety disorder, unspecified; E86.0 Dehydration; E78.5 Hyperlipidemia, unspecified; I65.22 Occlusion and stenosis of left carotid artery; J44.9 Chronic obstructive pulmonary disease, unspecified; I73.9 Peripheral vascular disease, unspecified; I25.10 Atherosclerotic heart disease of native coronary artery without angina pectoris; I10 Essential (primary) hypertension; D72.829 Elevated white blood cell count, unspecified; Z86.79 Personal history of other diseases of the circulatory system; Z87.891 Personal history of nicotine dependence; Z86.711 Personal history of pulmonary embolism; Z91.19 Patient's noncompliance with other medical treatment and regimen; Z79.01 Long term (current) use of anticoagulants; Z86.73 Personal history of transient ischemic attack (TIA), and cerebral infarction without residual deficits; Z89.512 Acquired absence of left leg below knee; Z89.511 Acquired absence of right leg below knee
CPT/HCPCS: 36415; 70450; 71045; 80048; 80053; 80307; 81003; 83605; 83735; 84100; 84443; 84484; 85025; 87040; 93005; 96360; J7030

== ENCOUNTER 2018-08-30 22:39 | Inpatient (IN) | payer MEDICARE, MEDICAID ==
[~2018-08-30] VITALS: Ht 177.8 cm; Wt 77.8 kg
[~2018-08-30 22:39] MED LIST changes: -ASPI-621 PO; +ASPI81TA45 PO; -KETO120S TP; +KETO120S2 TP; -QUET25TA PO; +QUET25TA7 PO; -SPIR25TA3 PO; +SPIR25TA5 PO; -THIA100T6 PO; +THIA100T67 PO
--- NOTE | 2018-08-30 22:39 | NUR ---
PT BIB [facility] FROM HOME FOR C/O CHEST PRESSURE AND SOB. PER EMS, CP NOW RESOLVED. 12 LEAD UNREMARKABLE PER EMS. VS PER EMS: 104/83, HR 80s SR, BS 137. PT ARRIVES TO ED A&OX4, SLIGHTLY FATIGUED. L JEANNETTE AND R SYDNEY (SURGERIES WERE 6 MONTHS AGO).
[2018-08-30] MEDS ORDERED: ASPIRIN 81 MG TABLET CHEW PO ONE (23:30)
[2018-08-30] MEDS ORDERED: SODIUM CHLORIDE FLUSH 10ML SYR IVF ONE (23:30)
[2018-08-30 23:33] LABS: INTERNATIONAL NORMALIZED RATIO 1.57 (0.93-1.1); PROTHROMBIN TIME 16.2 Seconds (9.6-11.5)
[2018-08-30 23:35] LABS: ALANINE AMINOTRANSFERASE 19 U/L (12-78); ALBUMIN 2.9 g/dL (3.4-5.0); ANION GAP 12 mmol/L (5-15); CALCIUM 7.9 mg/dL (8.5-10.1); CHLORIDE 106 mmol/L (98-107); CREATININE 0.91 mg/dL (0.7-1.3)
[2018-08-30 23:37] LABS: MEAN CORPUSCULAR HEMOGLOBIN 27.4 pg (27.5-34.5); MEAN CORPUSCULAR HGB CONC 32.1 g/dL (33.2-36.2); MEAN CORPUSCULAR VOLUME 85.4 fL (81-97); PLATELET COUNT 241 x10^3/uL (130-400); RED BLOOD COUNT 1.85 x10^6/uL (4.38-5.82); RED CELL DISTRIBUTION WIDTH 14.9 % (9.4-14.8)
--- NOTE | 2018-08-30 23:38 | NUR ---
LAB CALLED WITH [facility] 5.1/15.8. ERP NOTIFIED. Addendum: 08/31/18 at 0001 by GAURAV PER ERP, WILL HOLD ASA FOR NOW.
[2018-08-30 23:39] LABS: ALKALINE PHOSPHATASE 70 U/L (45-117); BILIRUBIN,TOTAL 0.3 mg/dL (0.2-1.0); TOTAL PROTEIN 5.6 g/dL (6.4-8.2); TROPONIN I < 0.015 ng/mL (0.000-0.045)
[2018-08-30] MEDS ORDERED: ASPIRIN 81 MG TABLET CHEW ONE (23:43)
[2018-08-30 23:51] LABS: ANISOCYTOSIS 1+; BASOPHILS # (AUTO) 0.03 x10^3/uL (0-0.1); BASOPHILS % (AUTO) 0 % (0-1); EOSINOPHILS % (AUTO) 1 % (1-7); LYMPHOCYTES % (AUTO) 15 % (22-44); MD MORPH REVIEW ONLY; MONOCYTES # (AUTO) 0.75 x10^3/uL (0.2-0.8); MONOCYTES % (AUTO) 9 % (2-9); NEUTROPHILS # (AUTO) 6.54 x10^3/uL (1.8-6.8); NEUTROPHILS % (AUTO) 75 % (42-75); POLYCHROMASIA 1+
[2018-08-30 23:52] LABS: <PLATELET ESTIMATE> ADEQUATE; <PLT MORPHOLOGY> NORMAL PLT MORPH; OVALOCYTES 1+; TEAR DROPS 1+
--- NOTE | 2018-08-30 23:55 | NUR ---
UPDATED PT ON POC. PT TRIED TO VOID IN URINAL AT SIDE OF BED, BUT UNABLE TO AT THIS TIME.
[2018-08-31] VITALS (15 sets, daily range): BP systolic 95–130; BP diastolic 43–69
[2018-08-31] MEDS ORDERED: PANTOPRAZOLE 80 MG in SODIUM CHLORIDE 0.9% 50 ML IVPB ONE (00:27)
[2018-08-31] MEDS ORDERED: PANTOPRAZOLE 80 MG in SODIUM CHLORIDE 0.9% 100 ML IV SCH (00:27)
[2018-08-31] MEDS ORDERED: MAGNESIUM SULFATE 1 GM, THIAMINE 100 MG, FOLIC ACID 1 MG, MVI ADULT 10 ML in SODIUM CHL... IV ONE (00:30)
[2018-08-31] MEDS ORDERED: SODIUM CHLORIDE FLUSH 10ML SYR IVF ONE (00:30)
--- NOTE | 2018-08-31 01:27 | NUR ---
[facility] TRANSFUSION STARTED BY MAX CASTANEDA PT TOLERATING WELL, NO S/S OF REACTION. UNDERSTANDS POC. Addendum: 08/31/18 at 0203 by GAURAV SEE TRANSFUSION RECORD FOR VS.
[2018-08-31] MEDS ORDERED: POTASSIUM CHLORIDE 20 MEQ in SODIUM CHLORIDE 0.9% 250 ML IV ONE (03:00)
[2018-08-31] MEDS ORDERED: ONDANSETRON 2MG/ML, 2ML IVPush PRN (03:00)
[2018-08-31] MEDS ORDERED: morphine SULFATE 10 MG/ML, 1ML IVPush PRN (03:00)
[2018-08-31] MEDS ORDERED: LABETALOL 5 MG/ML SYRINGE IVPush PRN (03:00)
[2018-08-31] MEDS ORDERED: LABETALOL 5MG/ML, 20ML IVPush PRN (03:00)
[2018-08-31] MEDS ORDERED: ACETAMINOPHEN 325 MG TABLET PO PRN (03:00)
[2018-08-31] MEDS ORDERED: FUROSEMIDE 20 MG/2 ML IVPush ONE (03:00)
[2018-08-31] MEDS ORDERED: THIAMINE 200 MG in SODIUM CHLORIDE 0.9% 50 ML IV ONE (03:30)
[2018-08-31] MEDS: PANTOPRAZOLE 80 MG in SODIUM CHLORIDE 0.9% 100 ML IV SCH ×3 (04:18→21:53)
[2018-08-31 06:30] LABS: TROPONIN I < 0.015 ng/mL (0.000-0.045)
[2018-08-31] MEDS: DORZOLAMIDE OPHTH 2%, 10ML EACHEYE SCH ×2 (22:30→23:16)
[2018-08-31] MEDS ORDERED: LATANOPROST OPHTH 0.005%, 2.5ML EACHEYE SCH (22:30)
[2018-09-01 00:57] VITALS: BP 102/61
[2018-09-01 06:58] VITALS: BP 110/63
[2018-09-01] MEDS: DORZOLAMIDE OPHTH 2%, 10ML EACHEYE SCH (08:38)
[2018-09-01] MEDS: PANTOPRAZOLE 80 MG in SODIUM CHLORIDE 0.9% 100 ML IV SCH (09:39)
== END 2018-09-01 12:10 | disposition left against medical advice (07) | DRG 378 ==
LOC: ED 08-31 00:43 → EDIP 08-31 00:44 → 4EST 08-31 02:04
PROVIDERS: ADMIT Family Medicine; ATTEND Family Medicine
PROC: 30233N1 Transfusion of Nonautologous Red Blood Cells into Peripheral Vein, Percutaneous Approach (ICD-10-PCS; principal; 2018-08-31)
DX: K92.2 Gastrointestinal hemorrhage, unspecified (principal); D68.69 Other thrombophilia; F10.10 Alcohol abuse, uncomplicated; D50.0 Iron deficiency anemia secondary to blood loss (chronic); E78.00 Pure hypercholesterolemia, unspecified; E78.5 Hyperlipidemia, unspecified; H93.A9 Pulsatile tinnitus, unspecified ear; I10 Essential (primary) hypertension; I25.10 Atherosclerotic heart disease of native coronary artery without angina pectoris; I65.22 Occlusion and stenosis of left carotid artery; I71.4 Abdominal aortic aneurysm, without rupture; I73.9 Peripheral vascular disease, unspecified; I95.1 Orthostatic hypotension; J44.9 Chronic obstructive pulmonary disease, unspecified; Z53.21 Procedure and treatment not carried out due to patient leaving prior to being seen by health care provider; Z79.01 Long term (current) use of anticoagulants; Z86.711 Personal history of pulmonary embolism; Z86.73 Personal history of transient ischemic attack (TIA), and cerebral infarction without residual deficits; Z86.79 Personal history of other diseases of the circulatory system; Z87.891 Personal history of nicotine dependence; Z89.519 Acquired absence of unspecified leg below knee; Z88.8 Allergy status to other drugs, medicaments and biological substances; Z89.612 Acquired absence of left leg above knee
CPT/HCPCS: 36415; 71045; 80053; 84484; 85014; 85018; 85025; 85610; 85730; 86850; 86900; 86923; 93005; 96365; G0378; J3411; J3480; C9113; J1940; J7050; P9016

== ENCOUNTER 2020-10-26 11:51 | Outpatient (CLI) | payer MEDICARE, MEDICAID ==
[~2020-10-26 11:51] MED LIST changes: -FOLI-17 PO; +FOLI1TAB32 PO; -KETO120S2 TP; +KETO120S4 TP; +MULT-449 PO; -MULT1TAB60 PO
== END 2020-10-26 23:59 | disposition home or self-care (01) ==
LOC: RAD 11:51
PROVIDERS: ATTEND Student in an Organized Health Care Education/Training Program
DX: Z12.2 Encounter for screening for malignant neoplasm of respiratory organs (principal); F17.210 Nicotine dependence, cigarettes, uncomplicated; I25.10 Atherosclerotic heart disease of native coronary artery without angina pectoris
CPT/HCPCS: 71271